=== PATIENT | male | born 1930 | race Caucasian/White ===

== ENCOUNTER 2017-06-06 14:29 | Inpatient (IN) | payer MEDICARE, OTHER ==
[~2017-06-06] VITALS: Ht 165.1 cm; Wt 49.8 kg
[~2017-06-06 14:29] MED LIST: ASPI-664 PO; DOCU-144 PO; METO-448 PO; OMEP20CA9 PO; TAMS-14 PO
[2017-06-06] MEDS ORDERED: SOD CHLORIDE 0.9% 500 ML IV STA (15:30)
[2017-06-06] MEDS ORDERED: MAGNESIUM HYDROXIDE 30ML CUP GTB PRN (16:30)
[2017-06-06] MEDS ORDERED: ONDANSETRON 4 MG INJ IV PRN ×2 (16:30)
[2017-06-06] MEDS ORDERED: DOCUSATE SODIUM 100 MG CAP PO PRN (16:30)
[2017-06-06] MEDS ORDERED: NACL 0.9% 3 ML SYG IV SCH (16:30)
[2017-06-06] MEDS ORDERED: ACETAMINOPHEN 325 MG TAB GTB PRN (16:30)
[2017-06-06] MEDS ORDERED: ACETAMINOPHEN 325 MG TAB PO PRN (16:30)
--- NOTE | 2017-06-06 16:31 | HP ---
Date/Time of Note Date/Time of Note DATE: 06/06/17 TIME: 16:31 Assessment/Plan VTE Prophylaxis VTE Prophylaxis Intervention: other Assessment/Plan Assessment/Plan 1. J tube malfunction - Patient sent from [facility] for replacement of Jtube - Dr. Danielson called by ED and plans for replacement in the am 2. Chronic respiratory failure with trach on vent - continue current settings - patient likely to be d/c after placement of J tube but if hospitalization prolonged with consult Pulm for vent management 3. ESBL UTI - Patient currently undergoing tx at SNF. Per records Vancomycin 500mg IV until 06/10 - patient has nl WBC and afebrile 4. Anemia - Will check FOBT - Iron studies ordered - ED ordered 2 units PRBC - Will hold Lovenox and aspirin for now - Start PPI IV BID for ?GI bleed. No yasmine blood appreciated 5. Hyponatremia - Will check baseline via [facility] records - order urine studies 6. Hemiplegia - Per Records, patient gets out of bed to [facility] [place] - contraction of lower extremities 7. HTN - continue current medications - stable 8. Dementia 9. CVA - hold aspirin for now 10. Diet - Resume tube feeds once Jtube replaced and GI bleed ruled out 11. DVT ppx - SCD 12. GI ppx - PPI BID 13. Code status - Full. will need to call facility regarding code status since not on paperwork 14. Disposition - Admit to telemetry HPI/ROS Admit Date/Time Admit Date/Time 06/06/17 Hx of Present Illness 86 yo M with PMH chronic respiratory failure who is trach dependent on ventilator, CVA, HTN, Dementia, Hemiplegia, Alzheimers, GERD, anemia, and COPD was sent from [facility] and rehab for malfunctioning J tube. Dr. Danielson made aware by ED physician. G tube placed in ED. Patient is currently receiving treatment for ESBL UTI and on Vancomycin 500mg IV until 06/10. Patient in no acute distress. History obtained from records sent with patient from SNF as well as ED physician. ROS All 12 systems reviewed but unable to obtain full ROS due to patient being nonverbal PMH/Family/Social Past Medical History Medical History: coronary artery disease, GERD, hypertension, renal disease, urinary tract infection, other (CVA. chronic respiratory failure, Dementia, Hemiplegia, anemia) Past Surgical History J tube placement, Trach placement Family History Significant Family History: no pertinent family hx Social History Alcohol Use: none Smoking Status: Unknown if ever smoked Drug Use: none Exam/Review of Systems Vital Signs Vitals Vital Signs Date Time Temp Pulse Resp B/P Pulse Ox O2 Delivery O2 Flow Rate FiO2 06/06/17 15:48 105 25 97 30 06/06/17 15:05 99.2 130/69 Exam Constitutional: alert, oriented, well developed, No distress Psych: no complaints Head: atraumatic, normocephalic Eyes: EOMI, PERRL ENMT: other (trach in place, no dentition) Neck: non-tender, supple Respiratory: clear to auscultation, crackles/rales, No wheezing Cardiovascular: nl pulses, regular rate and rhythm, No murmurs/extra sounds, No systolic murmur Gastrointestinal: non-tender, other (Jtube site clean and dry with no discharge , erythema, or drainage), soft, No distended, No rebound or guarding Genitourinary - Male: No discharge Musculoskeletal: other (contracted lower extremities) Extremities: No cyanosis, No edema Neurological: 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
[2017-06-06 16:39] LABS: ABNORMAL IP MESSAGE 1; BASOPHILS % 0.1 % (0.0-2.0); EOSINOPHILS # 0.1 10^3/ul (0.0-0.5); EOSINOPHILS % 0.6 % (0.0-7.0); HEMATOCRIT 22.6 % (42.0-52.0); HEMOGLOBIN 7.4 g/dl (14.0-18.0); LYMPHOCYTES # 0.4 10^3/ul (0.8-2.9); LYMPHOCYTES % 5.5 % (15.0-51.0); MEAN CORPUSCULAR HEMOGLOBIN 27.4 pg (29.0-33.0); MEAN CORPUSCULAR HGB CONC 32.7 g/dl (32.0-37.0); MEAN CORPUSCULAR VOLUME 83.7 fl (82.0-101.0); MEAN PLATELET VOLUME 9.1 fl (7.4-10.4); MONOCYTE # 0.3 10^3/ul (0.3-0.9); MONOCYTES % 4.4 % (0.0-11.0); NEUTROPHIL # 6.9 10^3/ul (1.6-7.5); NEUTROPHILS % 88.2 % (39.0-77.0); PLATELET COUNT 318 10^3/UL (140-415); POSITIVE DIFF @See below; RED CELL DISTRIBUTION WIDTH 18.4 % (11.5-14.5); WHITE BLOOD COUNT 7.8 10^3/ul (4.8-10.8)
[2017-06-06 16:48] VITALS: TEMP 98.4
[2017-06-06 16:58] LABS: ALBUMIN 2.3 g/dl (3.3-4.9); ALBUMIN/GLOBULIN RATIO 0.56; CALCIUM 8.3 mg/dl (8.4-10.2); CREATININE 1.05 mg/dl (0.61-1.24); POTASSIUM 4.1 mmol/L (3.5-5.1); TOTAL PROTEIN 6.4 g/dl (6.1-8.1)
[2017-06-06] MEDS: SOD CHLORIDE 0.9% 1,000 ML IV SCH (17:53)
[2017-06-06] MEDS ORDERED: FAMOTIDINE 20 MG INJ IV ONE (19:00)
[2017-06-06] MEDS ORDERED: VANCOMYCIN IV PER PHARMACY XX SCH (19:00)
[2017-06-06] MEDS ORDERED: VANCOMYCIN 500MG/NS (PMX) 100 ML IVPB SCH (19:00)
[2017-06-06] MEDS ORDERED: SOD CHLORIDE 0.9% 250 ML IV ONE (19:01)
--- NOTE | 2017-06-06 19:23 | ERD ---
ER Documentation Chief Complaint Chief Complaint PT HERE FOR J-TUBE REPLACEMENT HPI This 86 year male presents for a JG tube replacement secondary to a hole in the G-tube causing him to leak all over the patient. Brought in by paramedics and they stated there are no other complaints. The patient is his normal state of health including his respiratory on his normal vent settings, normal mental status which is noncommunicative at baseline. ROS Unobtainable Medications Home Meds Reported Medications Omeprazole* (Prilosec*) 20 Mg Capsule.dr, 20 MG PO DAILY, CAP 01/25/14 Docusate Sodium* (Colace*) 100 Mg Capsule, 100 MG PO BID, CAP 01/25/14 Aspirin* (Aspirin* (EC)) 81 Mg Tablet.dr, 81 MG PO DAILY, TAB 01/25/14 Metoprolol Tartrate* (Lopressor*) 25 Mg Tab, 25 MG PO BID for ELEVATED BLOOD PRESSURE, TAB 01/25/14 Tamsulosin Hcl* (Flomax*) 0.4 Mg Cap.er.24h, 0.4 MG PO HS, CAP 01/25/14 Allergies Allergies: Coded Allergies: No Known Allergies (Verified Allergy, Unknown, 01/25/14) PMhx/Soc History of Surgery: No Anesthesia Reaction: No Hx Neurological Disorder: No Hx Respiratory Disorders: No Hx Cardiac Disorders: No Hx Psychiatric Problems: No Hx Miscellaneous Medical Probl: Yes (BPH, spinal stenosis, HTN, ataxia, vocal cord cancer) Hx Alcohol Use: No Hx Substance Use: No Hx Tobacco Use: No Smoking Status: Unknown if ever smoked Physical Exam Vitals Vital Signs Date Time Temp Pulse Resp B/P Pulse Ox O2 Delivery O2 Flow Rate FiO2 06/06/17 15:48 105 25 97 30 06/06/17 15:05 99.2 103 16 130/69 100 Physical Exam Const: [] No obvious distress Head: Atraumatic Eyes: Normal Conjunctiva ENT: Normal External Ears, Nose and Mouth. Neck: Full range of motion..~ No meningismus. Resp: Admitted rhonchorous breath sounds from ventilator. Good air movement Cardio: Regular rate and rhythm, no murmurs Abd: Soft, no apparent tenderness, non distended. Normal bowel sounds. [address] [place] [address] tube in [address] with crack or leakage onto patient. Skin: No petechiae or rashes pale skin Ext: No cyanosis, or edema Neur: Awake and alert, tries to hold on his G-tube to prevent access, unable to perform any other neurological assessment is Result Diagram: 06/06/17 1530 06/06/17 1530 Results 24 hrs Laboratory Tests Test 06/06/17 15:30 White Blood Count 7.810^3/ul Red Blood Count 2.7010^6/ul Hemoglobin 7.4g/dl Hematocrit 22.6% Mean Corpuscular Volume 83.7fl Mean Corpuscular Hemoglobin 27.4pg Mean Corpuscular Hemoglobin Concent 32.7g/dl Red Cell Distribution Width 18.4% Platelet Count 84348^3/UL Mean Platelet Volume 9.1fl Neutrophils % 88.2% Lymphocytes % 5.5% Monocytes % 4.4% Eosinophils % 0.6% Basophils % 0.1% Nucleated Red Blood Cells % 0.0/100WBC Neutrophils # 6.910^3/ul Lymphocytes # 0.410^3/ul Monocytes # 0.310^3/ul Eosinophils # 0.110^3/ul Basophils # 0.010^3/ul Nucleated Red Blood Cells # 0.010^3/ul Sodium Level 131mmol/L Potassium Level 4.1mmol/L Chloride Level 96mmol/L Carbon Dioxide Level 31mmol/L Anion Gap 8 Blood Urea Nitrogen 50mg/dl Creatinine 1.05mg/dl Glucose Level 99mg/dl Calcium Level 8.3mg/dl Total Bilirubin 0.0mg/dl Direct Bilirubin 0.00mg/dl Indirect Bilirubin 0.0mg/dl Aspartate Amino Transf (AST/SGOT) 32IU/L Alanine Aminotransferase (ALT/SGPT) 26IU/L Alkaline Phosphatase 107IU/L Total Protein 6.4g/dl Albumin 2.3g/dl Globulin 4.10g/dl Albumin/Globulin Ratio 0.56 Lipase 35U/L Current Medications Medications (Trade) Dose Ordered Sig/Brian Route PRN Reason Start Time Stop Time Status Last Admin Dose Admin Sodium Chloride (NS) 500 ml @ 500 mls/hr Q1H STAT IV 06/06/17 15:30 06/06/17 16:29 DC 06/06/17 16:37 Procedures/MDM Patient sent here for feeding tube placement secondary to leaking G-tube with hole. Leaking G-tube was removed and normal small 18 Kazakh G-tube was put in place to maintain the opening. Spoke with Dr. Danielson, who is the patient's GI consult on his last visit for intestinal obstruction. We will place the tube in the morning. Patient also has an elevated BUN and low hemoglobin compared to a hemoglobin of 12 last time is dropped significantly both labs are consistent with GI bleeding. Patient was given Pepcid IV and is being transferred 2 units. Patient is being admitted to panel Dr. Merritt saw the patient in the room. Departure Diagnosis: Primary Impression: Acute GI bleeding Additional Impressions: Severe anemia Feeding tube dysfunction Condition: Serious CATRACHITA WASHBURN Jun 06, 2017 19:23
[2017-06-06 19:50] VITALS: RESP 22
[2017-06-06 20:00] VITALS: BP 117/58; RESP 21
[2017-06-06] MEDS ORDERED: VANCOMYCIN 1 GM in NS 250 ML IVPB SCH ×2 (20:00→21:30)
[2017-06-06 20:22] VITALS: Ht 165.1 cm; Wt 49.8 kg
[2017-06-06 20:36] VITALS: PULSE 98
[2017-06-06 21:45] VITALS: RESP 27
[2017-06-06] MEDS: METOPROLOL 25 MG TAB GTB SCH (22:36)
[2017-06-06] MEDS: TAMSULOSIN (SR) 0.4 MG CAP PO SCH (22:38)
[2017-06-06] MEDS ORDERED: PENDING SANTYL ORDER FOR WOUND CARE XX PRN (23:00)
[2017-06-06 23:20] VITALS: RESP 20
[2017-06-07] VITALS (31 sets, daily range): BP systolic 113–153; BP diastolic 57–73; PULSE 73–114; RESP 14–26
[2017-06-07] MEDS ORDERED: ACETAMINOPHEN 650 MG SUPP PR ONE (05:30)
[2017-06-07] MEDS: PANTOPRAZOLE 40 MG INJ IV SCH ×2 (05:32→17:30)
[2017-06-07] MEDS: SOD CHLORIDE 0.9% 1,000 ML IV SCH ×2 (05:32→17:30)
[2017-06-07] MEDS ORDERED: PANTOPRAZOLE (EC) 40 MG TAB PO SCH (06:00)
[2017-06-07] MEDS: COLLAGENASE 30 GM TUBE TOP SCH (08:31)
[2017-06-07] MEDS: METOPROLOL 25 MG TAB GTB SCH ×2 (08:31→21:42)
[2017-06-07] MEDS ORDERED: ASPIRIN (EC) 81 MG TAB PO SCH (09:00)
[2017-06-07] MEDS ORDERED: ENOXAPARIN 40 MG/0.4 ML SYG SC SCH (09:00)
[2017-06-07 10:40] LABS: ABNORMAL IP MESSAGE 1; BASOPHILS % 0.3 % (0.0-2.0); EOSINOPHILS # 0.1 10^3/ul (0.0-0.5); EOSINOPHILS % 0.8 % (0.0-7.0); HEMATOCRIT 27.9 % (42.0-52.0); HEMOGLOBIN 9.1 g/dl (14.0-18.0); LYMPHOCYTES # 0.6 10^3/ul (0.8-2.9); LYMPHOCYTES % 5.4 % (15.0-51.0); MEAN CORPUSCULAR HEMOGLOBIN 27.5 pg (29.0-33.0); MEAN CORPUSCULAR HGB CONC 32.6 g/dl (32.0-37.0); MEAN CORPUSCULAR VOLUME 84.3 fl (82.0-101.0); MEAN PLATELET VOLUME 9.2 fl (7.4-10.4); MONOCYTE # 0.4 10^3/ul (0.3-0.9); MONOCYTES % 3.9 % (0.0-11.0); NEUTROPHIL # 9.5 10^3/ul (1.6-7.5); NEUTROPHILS % 87.7 % (39.0-77.0); PLATELET COUNT 323 10^3/UL (140-415); POSITIVE DIFF @See below; RED BLOOD COUNT 3.31 10^6/ul (4.70-6.10); RED CELL DISTRIBUTION WIDTH 17.2 % (11.5-14.5); WHITE BLOOD COUNT 10.8 10^3/ul (4.8-10.8)
[2017-06-07 10:52] LABS: IRON 30 ug/dl (35-150)
[2017-06-07 10:56] LABS: ALBUMIN 2.2 g/dl (3.3-4.9); CALCIUM 8.4 mg/dl (8.4-10.2); CREATININE 1.14 mg/dl (0.61-1.24); PHOSPHORUS 4.1 mg/dl (2.5-4.9); POTASSIUM 3.6 mmol/L (3.5-5.1)
[2017-06-07 11:01] LABS: TOTAL IRON BINDING CAPACITY 160 ug/dl (241-421)
[2017-06-07 11:11] LABS: INR 1.1; PROTIME 14.2 Sec (12.2-14.2); PT RATIO 1.1
[2017-06-07 11:12] LABS: PARTIAL THROMBOPLASTIN TIME 42.4 Sec (25.0-35.0)
[2017-06-07] MEDS: SODIUM HYPOCHLORITE 0.125% 473 ML BTL IRR SCH ×2 (14:00→21:42)
--- NOTE | 2017-06-07 16:50 | CONS ---
DATE OF ADMISSION: 06/06/2017 DATE OF CONSULTATION: 06/07/2017 Thank you, Dr. Merritt, for this consultation. HISTORY OF PRESENT ILLNESS: This is an 86-year-old gentleman with vent dependent respiratory failur e, CVA, hypertension, hyperlipidemia, COPD, transferred for evaluation of malfunctioning G-tube. Th e patient had no change from his baseline neurological status. On admission, found to have ESBL uri nary tract infection. PAST MEDICAL HISTORY: 1. Vent dependent respiratory failure. 2. Cerebrovascular accident. 3. Chronic anemia. 4. Recent gastrostomy tube malfunction. 5. History of dementia. 6. Dysphagia with G-tube. MEDICATIONS: Per chart. ALLERGIES: NONE. SOCIAL HISTORY: Nonsmoker, no alcohol, no history of drug use. FAMILY HISTORY: Noncontributory. SYSTEMS REVIEW: A 12-point review of systems was negative other than that mentioned above. PHYSICAL EXAMINATION: GENERAL: A chronically ill-appearing gentleman, appears comfortable at rest. VITAL SIGNS: Temperature 98, pulse 84, blood pressure 145/66, O2 saturation 96% on 3 liters. NECK: Supple. No JVD or lymphadenopathy. CARDIAC: S1, S2, no added sounds or murmurs. CHEST: Diminished air entry bilaterally. ABDOMEN: Soft, nontender. No guarding or rebound. EXTREMITIES: No cyanosis, clubbing, edema. NEUROLOGIC: Generalized weakness. LABORATORY DATA: White count 10.8, hemoglobin 9.1, platelets of 323. BUN 43, creatinine 1.14. DIAGNOSTIC DATA: Chest x-ray was reviewed, showed no infiltrates or effusions. IMPRESSION AND PLAN: 1. G-tube malfunction. 2. Vent dependent respiratory failure. 3. Chronic anemia, questionable gastrointestinal bleed. 4. History of encephalopathy. 5. History of cerebrovascular accident. PLAN: 1. Continue vent support. 2. Monitor H and H post-transfusion. 3. Continue tube feeding per GI. 4. Bronchiolitis. 5. DVT and GI prophylaxis. Dictated By: MUNIRA CABRERA/FOX Conf#: [id number] DID#: [id number] CC: Dr. Miriam Merritt;*EndCC*
--- NOTE | 2017-06-07 19:12 | PN ---
Date/Time of Note Date/Time of Note DATE: 06/07/17 TIME: 19:06 Assessment/Plan VTE Prophylaxis VTE Prophylaxis Intervention: SCD's Lines/Catheters IV Catheter Type (from Nrs): Saline Lock Urinary Cath still in place: Yes Reason Cath still needed: terminal illness/intractable pain Assessment/Plan Assessment/Plan 1. J tube malfunction - Patient sent from [facility] for replacement of Jtube - Dr. Danielson called by ED and plans for replacement 2. Chronic respiratory failure with trach on vent - continue current settings - Pulmonology consulted and appreciated recommendations. Continue on vent support with bronchodilators 3. ESBL UTI - Patient currently undergoing tx at [facility]. Vancomycin until 06/10 - patient has nl WBC and afebrile 4. Anemia - Will check FOBT - Iron studies show low iron. start replacement - Will hold Lovenox and aspirin for now - Start PPI IV BID for ?GI bleed. No yasmine blood appreciated 5. Hyponatremia- improved 6. Hemiplegia - Per Records, patient gets out of bed to [facility] - contraction of lower extremities 7. HTN - continue current medications - stable 8. Dementia 9. CVA - hold aspirin for now 10. Disposition - J tube needs replacing - rule out GI bleed - return to [facility] when stable Subjective 24 Hr Interval Summary Free Text/Dictation Patient in no acute distress on vent. No acute overnight events. Received 2 units PRBC yesterday. no active bleeding appreciated Exam/Review of Systems Vital Signs Vitals Vital Signs Date Time Temp Pulse Resp B/P Pulse Ox O2 Delivery O2 Flow Rate FiO2 06/07/17 17:05 83 18 97 30 06/07/17 16:01 98.3 145/66 06/06/17 16:48 Mechanical Ventilator Intake and Output 06/06/17 06/06/17 06/07/17 14:59 22:59 06:59 Intake Total 250 ml 50 ml Balance 250 ml 50 ml Exam Constitutional: alert, oriented, well developed, No distress ENMT: trach in place, no dentition Neck: non-tender, supple Respiratory: clear to auscultation, diminished breath sounds bilaterally, No wheezing Cardiovascular: nl pulses, regular rate and rhythm, No murmurs/extra sounds, No systolic murmur Gastrointestinal: non-tender, G tube site clean and dry with no discharge, erythema, or drainage, soft, No distended, No rebound or guarding Musculoskeletal: ontracted lower extremities Extremities: No cyanosis, No edema Neurological: 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 II-XII intact, nl mental status, nl speech Results Result Diagram: 06/07/1790406/07/17904 Results 24 hrs Laboratory Tests Test 06/07/17 09:05 06/07/17 16:00 White Blood Count 10.8 # Red Blood Count 3.31 #L Hemoglobin 9.1 #L Hematocrit 27.9 #L Mean Corpuscular Volume 84.3 Mean Corpuscular Hemoglobin 27.5 L Mean Corpuscular Hemoglobin Concent 32.6 Red Cell Distribution Width 17.2 H Platelet Count 323 Mean Platelet Volume 9.2 Neutrophils % 87.7 H Lymphocytes % 5.4 L Monocytes % 3.9 Eosinophils % 0.8 Basophils % 0.3 Nucleated Red Blood Cells % 0.0 Neutrophils # 9.5 H Lymphocytes # 0.6 L Monocytes # 0.4 Eosinophils # 0.1 Basophils # 0.0 Nucleated Red Blood Cells # 0.0 Prothrombin Time 14.2 Prothrombin Time Ratio 1.1 INR International Normalized Ratio 1.10 Activated Partial Thromboplast Time 42.4 H Sodium Level 137 Potassium Level 3.6 Chloride Level 102 Carbon Dioxide Level 28 Anion Gap 11 Blood Urea Nitrogen 43 H Creatinine 1.14 Glucose Level 80 Calcium Level 8.4 Phosphorus Level 4.1 Magnesium Level 2.0 Iron Level 30 L Total Iron Binding Capacity 160 L Percent Iron Saturation 19 L Albumin 2.2 L Prealbumin 7.6 L Stool Occult Blood NEGATIVE Medications Medications Current Medications Docusate Sodium (Colace) 100 mg BID PRN PO constipation; Start 06/06/17 at 16: 30 Metoprolol Tartrate (Lopressor) 25 mg BID GTB ; Start 06/06/17 at 21:00 Tamsulosin HCl 0.4 mg 0.4 mg HS PO ; Start 06/06/17 at 21:00 Sodium Chloride (NS) 1,000 ml @ 75 mls/hr [id number] IV Last administered on t 17:53; Admin Dose 75 MLS/HR; Start 06/06/17 at 16:27 Ondansetron HCl (Zofran Inj) 4 mg Q6H PRN IV NAUSEA AND/OR VOMITING; Start at 16:30 Acetaminophen (Tylenol Tab) 650 mg Q6H PRN GTB PAIN LEVEL 1-3 OR FEVER; Start 06/06/17 at 16:30 Magnesium Hydroxide (Milk Of Mag) 30 ml DAILY PRN GTB CONSTIPATION; Start at 16:30 Enoxaparin Sodium (Lovenox) 40 mg DAILY SC ; Start 06/07/17 at 09:00; Status Future Hold Pantoprazole (Protonix Iv) 40 mg BID@06,18 IV Last administered on 06/07/17 17:30; Admin Dose 40 MG; Start 06/07/17 at 06:00 Miscellaneous Information This patient felipe... PRN PRN XX WOUND CARE; Start at 23:00 Vancomycin HCl (Vancocin) 100 ml @ 100 mls/hr Q24H IVPB ; Start 06/07/17 at 23 :45 Collagenase (Santyl) 1 applic DAILY TOP Last administered on 06/07/17 08:31; Admin Dose 1 APPLIC; Start 06/07/17 at 09:00 Sodium Hypochlorite (Dakin'S (1/4 Strength)) 1 applic BID IRR Last administered on 06/07/17 14:00; Admin Dose 1 APPLIC; Start 06/07/17 at 14:00 Miscellaneous Information (*Rx Drug Level Order Reminder*) 1 ONCE ONCE XX ; Start 06/07/17 at 22:45; Stop 06/07/17 at 22:46 GAVI GARCIA MD Jun 07, 2017 19:12
--- NOTE | 2017-06-07 19:14 | CONS ---
DATE OF ADMISSION: 06/06/2017 DATE OF CONSULTATION: 06/07/2017 REQUESTING PROVIDER: Leroy Roach MD. HISTORY OF PRESENT ILLNESS: The patient is an 86-year-old male with a history of vent-dependent res piratory failure, CVA, aspiration pneumonia in the past, COPD, was brought to the emergency room bec ause there was a marichuy in the stalk of the GJ tube so there was a leakage from that. In the ER, the GJ tube, which was malfunctioning, was removed and the ER physician replaced with a gastrostomy tube . They could not pass the GJ tube, so GI consult was called in for placement of a gastrojejunostomy tube. The patient also was found to have ESBL in the urine. PAST MEDICAL HISTORY: Dementia, GJ tube for aspiration pneumonia placed at [facility] by kunal stanford CVA, vent dependent respiratory failure. ALLERGIES: NONE. SOCIAL HISTORY: Nonsmoker, no alcohol, no IV drug abuse. FAMILY HISTORY: Nothing significant. REVIEW OF SYSTEMS: Otherwise negative. PHYSICAL EXAMINATION: GENERAL: Thin built, nourished. HEENT: Unremarkable. NECK: Supple, no thyromegaly, no lymphadenopathy. CARDIOVASCULAR: No murmur, gallop or click. LUNGS: Clear. ABDOMEN: Benign. G-tube in place. EXTREMITIES: No edema. CENTRAL NERVOUS SYSTEM: The patient is confused. IMPRESSION: 1. Malfunctioning GJ tube. 2. Vent dependent respiratory failure. 3. Chronic anemia. 4. History of aspiration pneumonia. 5. Cerebrovascular accident. 6. Encephalopathy. PLAN: Continue present care. Continue IV hydration and once we get the consent and GI lab is able to accommodate, I will proceed with the placement of gastrojejunostomy tube. The patient's hematocrit when he came was low, now it is 27. His BUN also was high. Iron saturatio n was 19, low. Plan is to monitor H and H, proceed with a GJ tube. Continue IV hydration in the nd antime. Dictated By: ELIZABETH AVILA MD PJ/NTS Conf#: [id number] DID#: [id number] CC: LEROY ROACH MD;*EndCC*
--- NOTE | 2017-06-07 19:27 | OPPN ---
Date/Time of Note Date/Time of Note DATE: 06/07/17 TIME: 19:25 Proc Note GI Procedure Date 06/07/17 Indication: treatment (Gastro-jejunostomy tube) Pre-procedure Diagnosis Dysphagia Aspiration pneumonia Post-procedure Diagnosis Removal of the G-tube Placement of gastrojejunostomy tube with no loop inside the stomach Procedure Performed: Other (Jejunostomy tube) Surgeon see signature line Road Train Driver none Anesthesia Type: MAC Tourniquet Time none EBL none Transfusion required none Biopsy 1: None Grafts/Implants none Tubes/Drains none Complication(s) none Disposition: PACU Procedure Description Dictated ELIZABETH AVILA MD Jun 07, 2017 19:27
--- NOTE | 2017-06-07 19:39 | GILP ---
DATE OF PROCEDURE: 06/07/2017 PROCEDURE: Removal of G-tube and placement of gastrojejunostomy tube. INDICATION: Elderly male undergoing this procedure for malfunctioning of the GJ tube. The risk of the procedure, related and unrelated complications, anesthetic risks, alternatives discussed with garcia e son and informed consent was obtained. Procedure was done bedside. DESCRIPTION OF PROCEDURE: Patient was sedated by Dr. Gabriel. After obtaining sedation, scope was p assed with much ease into esophagus and advanced further down into stomach. The G-tube with its bal loon identified. Balloon was deflated. G-tube was removed and through the same gastrocutaneous fis justin, GJ tube of 20 Barbadian passed with much ease into the stomach. The loop of the GJ tube was gras ped with endoclip and pulled along with the GJ tube all the way beyond the third part of the duodenu m. It was in the proximal jejunum. When the tip of the jejunostomy tube was in the proximal jejunu m, the loop was encouraged to the mucosa by endoclip. The scope was then withdrawn back into the [facility]. There was a small loop of GJ tube. That loop was reduced with the help of rectal forceps gr asping the stalk of the GJ tube and pushing it down, making sure there was absolutely no loop left b ehind. The patient tolerated the procedure very well. Scope was removed with excellent patient yash erance. IMPRESSION: 1. Removal of the old G-tube. 2. Placement of GJ tube. PLAN: Resume feeding through the jejunostomy port and medications through the gastrostomy port. Th is information was conveyed to the nurse, Sybil. Dictated By: ELIZABETH CLARK/FOX Conf#: [id number] DID#: [id number]
[2017-06-07] MEDS ORDERED: VANCOMYCIN 750 MG in DEXTROSE 5% 150 ML IVPB SCH (21:30)
[2017-06-07] MEDS: TAMSULOSIN (SR) 0.4 MG CAP PO SCH (21:42)
[2017-06-07] MEDS ORDERED: VANCOMYCIN 500MG/NS (PMX) 100 ML IVPB SCH (23:45)
[2017-06-08] VITALS (22 sets, daily range): BP systolic 135–189; BP diastolic 65–88; PULSE 80–122; RESP 16–37
[2017-06-08] MEDS: PANTOPRAZOLE 40 MG INJ IV SCH ×2 (05:45→17:04)
[2017-06-08] MEDS: SOD CHLORIDE 0.9% 1,000 ML IV SCH ×2 (05:46→08:27)
[2017-06-08] MEDS: METOPROLOL 25 MG TAB GTB SCH ×2 (08:18→22:39)
[2017-06-08] MEDS: SODIUM HYPOCHLORITE 0.125% 473 ML BTL IRR SCH ×2 (08:19→22:40)
[2017-06-08] MEDS: COLLAGENASE 30 GM TUBE TOP SCH (08:20)
[2017-06-08 08:37] LABS: ABNORMAL IP MESSAGE 1; BASOPHILS % 0.2 % (0.0-2.0); EOSINOPHILS # 0.1 10^3/ul (0.0-0.5); EOSINOPHILS % 0.8 % (0.0-7.0); HEMATOCRIT 27.3 % (42.0-52.0); LYMPHOCYTES # 0.5 10^3/ul (0.8-2.9); LYMPHOCYTES % 3.9 % (15.0-51.0); MEAN CORPUSCULAR HEMOGLOBIN 27.5 pg (29.0-33.0); MEAN CORPUSCULAR VOLUME 83.5 fl (82.0-101.0); MEAN PLATELET VOLUME 8.8 fl (7.4-10.4); MONOCYTE # 0.5 10^3/ul (0.3-0.9); MONOCYTES % 4.3 % (0.0-11.0); NEUTROPHIL # 10.7 10^3/ul (1.6-7.5); NEUTROPHILS % 87.9 % (39.0-77.0); PLATELET COUNT 303 10^3/UL (140-415); POSITIVE DIFF @See below; RED BLOOD COUNT 3.27 10^6/ul (4.70-6.10); RED CELL DISTRIBUTION WIDTH 17.2 % (11.5-14.5); WHITE BLOOD COUNT 12.2 10^3/ul (4.8-10.8)
[2017-06-08 09:16] LABS: ALBUMIN 2.1 g/dl (3.3-4.9); CALCIUM 8.1 mg/dl (8.4-10.2); CREATININE 1.13 mg/dl (0.61-1.24); MAGNESIUM 1.8 mg/dl (1.7-2.5); PHOSPHORUS 4.4 mg/dl (2.5-4.9); POTASSIUM 3.6 mmol/L (3.5-5.1)
[2017-06-08] MEDS ORDERED: DEXTROSE 5%-0.45% NACL 1,000 ML IV SCH (11:00)
[2017-06-08] MEDS: SOD CHLORIDE 0.45% 1,000 ML IV SCH (11:29)
--- NOTE | 2017-06-08 13:51 | CONS ---
Date/Time of Note Date/Time of Note DATE: 06/08/17 TIME: 13:50 Assessment/Plan Assessment/Plan Additional Assessment/Plan IMPRESSION: 1. Malfunctioning GJ tube. 2. Vent dependent respiratory failure. 3. Chronic anemia. 4. History of aspiration pneumonia. 5. Cerebrovascular accident. 6. Encephalopathy. 7. S/P GJ tube Plan tolerating feeding advance feeding as per dietitian instruction Consultation Date/Type/Reason Admit Date/Time Jun 08, 2017 at 12:13 Initial Consult Date 24 HR Interval Summary Constitutional: no complaints Exam/Review of Systems Vital Signs Vitals Vital Signs Date Time Temp Pulse Resp B/P Pulse Ox O2 Delivery O2 Flow Rate FiO2 06/08/17 12:54 84 06/08/17 12:06 98.6 18 149/67 99 06/08/17 10:55 30 06/07/17 19:55 Mechanical Ventilator Intake and Output 06/07/17 06/07/17 06/08/17 15:00 23:00 07:00 Intake Total 575 ml 0 ml 580 ml Output Total 800 ml 600 ml 600 ml Balance -225 ml -600 ml -20 ml Exam Constitutional: alert, oriented, well developed Psych: nl mood/affect, no complaints Head: atraumatic, normocephalic Eyes: EOMI, PERRL, nl conjunctiva, nl lids, nl sclera ENMT: nl external ears & nose, nl lips & teeth, nl nasal mucosa & septum Neck: non-tender, supple Respiratory: clear to auscultation, normal air movement Cardiovascular: nl pulses, regular rate and rhythm Gastrointestinal: nl liver, spleen, non-tender, soft Musculoskeletal: nl extremities to inspection, nl gait and stance Extremities: normal pulses Neurological: 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 II-XII intact, nl mental status, nl speech, nl strength Skin: nl turgor, No rash or lesions Lymph: nl lymph nodes Results Result Diagram: 06/08/17 0806/08/17 08 Results 24 hrs Laboratory Tests Test 06/07/17 16:00 06/07/17 22:50 06/08/17 08:01 Stool Occult Blood NEGATIVE Vancomycin Level Trough 19.7 White Blood Count 12.2 H Red Blood Count 3.27 L Hemoglobin 9.0 L Hematocrit 27.3 L Mean Corpuscular Volume 83.5 Mean Corpuscular Hemoglobin 27.5 L Mean Corpuscular Hemoglobin Concent 33.0 Red Cell Distribution Width 17.2 H Platelet Count 303 Mean Platelet Volume 8.8 Neutrophils % 87.9 H Lymphocytes % 3.9 L Monocytes % 4.3 Eosinophils % 0.8 Basophils % 0.2 Nucleated Red Blood Cells % 0.0 Neutrophils # 10.7 H Lymphocytes # 0.5 L Monocytes # 0.5 Eosinophils # 0.1 Basophils # 0.0 Nucleated Red Blood Cells # 0.0 Sodium Level 142 Potassium Level 3.6 Chloride Level 107 Carbon Dioxide Level 23 Anion Gap 16 Blood Urea Nitrogen 40 H Creatinine 1.13 Glucose Level 102 Calcium Level 8.1 L Phosphorus Level 4.4 Magnesium Level 1.8 Albumin 2.1 L Medications Medications Current Medications Docusate Sodium (Colace) 100 mg BID PRN PO constipation; Start 06/06/17 at 16: 30 Metoprolol Tartrate (Lopressor) 25 mg BID GTB Last administered on 06/08/17 08:18; Admin Dose 25 MG; Start 06/06/17 at 21:00 Tamsulosin HCl (Flomax) 0.4 mg HS PO Last administered on 06/07/17 21:42; Admin Dose 0.4 MG; Start 06/06/17 at 21:00 Ondansetron HCl (Zofran Inj) 4 mg Q6H PRN IV NAUSEA AND/OR VOMITING; Start at 16:30 Acetaminophen (Tylenol Tab) 650 mg Q6H PRN GTB PAIN LEVEL 1-3 OR FEVER; Start 06/06/17 at 16:30 Magnesium Hydroxide (Milk Of Mag) 30 ml DAILY PRN GTB CONSTIPATION; Start at 16:30 Enoxaparin Sodium (Lovenox) 40 mg DAILY SC ; Start 06/07/17 at 09:00; Status Future Hold Pantoprazole (Protonix Iv) 40 mg BID@06,18 IV Last administered on 06/08/17 05:45; Admin Dose 40 MG; Start 06/07/17 at 06:00 Miscellaneous Information This patient felipe... PRN PRN XX WOUND CARE; Start at 23:00 Vancomycin HCl (Vancocin) 100 ml @ 100 mls/hr Q24H IVPB Last administered on 06/07/17 23:56; Admin Dose 100 MLS/HR; Start 06/07/17 at 23:45 Collagenase (Santyl) 1 applic DAILY TOP Last administered on 06/08/17 08:20; Admin Dose 1 APPLIC; Start 06/07/17 at 09:00 Sodium Hypochlorite 1 applic 1 applic BID IRR Last administered on 06/08/17 08:19; Admin Dose 1 APPLIC; Start 06/07/17 at 14:00 Sodium Chloride (1/2 NS) 1,000 ml @ 50 mls/hr Q20H IV Last administered on 11:29; Admin Dose 50 MLS/HR; Start 06/08/17 at 11:00 ELIZABETH AVILA MD Jun 08, 2017 13:51
--- NOTE | 2017-06-08 16:14 | PN ---
Date/Time of Note Date/Time of Note DATE: 06/08/17 TIME: 16:10 Assessment/Plan VTE Prophylaxis VTE Prophylaxis Intervention: SCD's Lines/Catheters IV Catheter Type (from [facility]): Saline Lock Urinary Cath still in place: Yes Reason Cath still needed: urinary retention Assessment/Plan Chief Complaint/Hosp Course Assessment/Plan 1. J tube malfunction - Patient sent from [facility] for replacement of Jtube - Dr. Danielson called by ED and replaced Jtube yesterday -working well -back on tube feeds 2. Chronic respiratory failure with trach on vent - continue current settings - Pulmonology consulted and appreciated recommendations. Continue on vent support with bronchodilators 3. ESBL UTI - Patient currently undergoing tx at [facility]. Vancomycin until 06/10 - patient has nl WBC and afebrile 4. Anemia - Will check FOBT - Iron studies show low iron. start replacement - Will hold Lovenox and aspirin for now - Start PPI IV BID for ?GI bleed. ?mildly bloody martinez, likely patient ripped out or manipulated martinez. if doesn't clear up, will need to start CBI -GI recs appreciated, will monitor, if hgb stable, will suggest outpatient workup 5. Hyponatremia- improved 6. Hemiplegia - Per Records, patient gets [facility] - contraction of lower extremities 7. HTN - continue current medications - stable 8. Dementia 9. CVA - hold aspirin for now 10. Disposition - J tube replaced - return to [facility] when stable Problems: Subjective 24 Hr Interval Summary Free Text/Dictation easily arousable, but does not follow command, contracted Exam/Review of Systems Vital Signs Vitals Vital Signs Date Time Temp Pulse Resp B/P Pulse Ox O2 Delivery O2 Flow Rate FiO2 06/08/17 15:58 98.8 55 18 189/84 93 06/08/17 10:55 30 06/07/17 19:55 Mechanical Ventilator Intake and Output 06/07/17 06/07/17 06/08/17 15:00 23:00 07:00 Intake Total 575 ml 0 ml 580 ml Output Total 800 ml 600 ml 600 ml Balance -225 ml -600 ml -20 ml Exam Constitutional: alert, oriented, well developed, No distress ENMT: trach in place, no dentition Neck: non-tender, supple Respiratory: clear to auscultation, diminished breath sounds bilaterally, No wheezing Cardiovascular: nl pulses, regular rate and rhythm, No murmurs/extra sounds, No systolic murmur Gastrointestinal: non-tender, G tube site clean and dry with no discharge, erythema, or drainage, soft, No distended, No rebound or guarding Musculoskeletal: ontracted lower extremities Extremities: No cyanosis, No edema Neurological: SCRAP HANDLER II-XII intact, nl mental status, nl speec Results Result Diagram: 06/08/17 0806/08/17 08 Results 24 hrs Laboratory Tests Test 06/07/17 22:50 06/08/17 08:01 Vancomycin Level Trough 19.7 White Blood Count 12.2 H Red Blood Count 3.27 L Hemoglobin 9.0 L Hematocrit 27.3 L Mean Corpuscular Volume 83.5 Mean Corpuscular Hemoglobin 27.5 L Mean Corpuscular Hemoglobin Concent 33.0 Red Cell Distribution Width 17.2 H Platelet Count 303 Mean Platelet Volume 8.8 Neutrophils % 87.9 H Lymphocytes % 3.9 L Monocytes % 4.3 Eosinophils % 0.8 Basophils % 0.2 Nucleated Red Blood Cells % 0.0 Neutrophils # 10.7 H Lymphocytes # 0.5 L Monocytes # 0.5 Eosinophils # 0.1 Basophils # 0.0 Nucleated Red Blood Cells # 0.0 Sodium Level 142 Potassium Level 3.6 Chloride Level 107 Carbon Dioxide Level 23 Anion Gap 16 Blood Urea Nitrogen 40 H Creatinine 1.13 Glucose Level 102 Calcium Level 8.1 L Phosphorus Level 4.4 Magnesium Level 1.8 Albumin 2.1 L Medications Medications Current Medications Docusate Sodium (Colace) 100 mg BID PRN PO constipation; Start 06/06/17 at 16: 30 Metoprolol Tartrate (Lopressor) 25 mg BID GTB Last administered on 06/08/17 08:18; Admin Dose 25 MG; Start 06/06/17 at 21:00 Tamsulosin HCl (Flomax) 0.4 mg HS PO Last administered on 06/07/17 21:42; Admin Dose 0.4 MG; Start 06/06/17 at 21:00 Ondansetron HCl (Zofran Inj) 4 mg Q6H PRN IV NAUSEA AND/OR VOMITING; Start at 16:30 Acetaminophen (Tylenol Tab) 650 mg Q6H PRN GTB PAIN LEVEL 1-3 OR FEVER; Start 06/06/17 at 16:30 Magnesium Hydroxide (Milk Of Mag) 30 ml DAILY PRN GTB CONSTIPATION; Start at 16:30 Enoxaparin Sodium (Lovenox) 40 mg DAILY SC ; Start 06/07/17 at 09:00; Status Future Hold Pantoprazole (Protonix Iv) 40 mg BID@06,18 IV Last administered on 06/08/17 05:45; Admin Dose 40 MG; Start 06/07/17 at 06:00 Miscellaneous Information This patient felipe... PRN PRN XX WOUND CARE; Start at 23:00 Vancomycin HCl (Vancocin) 100 ml @ 100 mls/hr Q24H IVPB Last administered on 06/07/17 23:56; Admin Dose 100 MLS/HR; Start 06/07/17 at 23:45 Collagenase (Santyl) 1 applic DAILY TOP Last administered on 06/08/17 08:20; Admin Dose 1 APPLIC; Start 06/07/17 at 09:00 Sodium Hypochlorite 1 applic 1 applic BID IRR Last administered on 06/08/17 08:19; Admin Dose 1 APPLIC; Start 06/07/17 at 14:00 Sodium Chloride (1/2 NS) 1,000 ml @ 50 mls/hr Q20H IV Last administered on 11:29; Admin Dose 50 MLS/HR; Start 06/08/17 at 11:00 JULIANNA WALDEN Jun 08, 2017 16:14
[2017-06-08] MEDS: TAMSULOSIN (SR) 0.4 MG CAP PO SCH (22:39)
[2017-06-09] VITALS (23 sets, daily range): BP systolic 97–163; BP diastolic 56–77; PULSE 72–90; RESP 18–56
[2017-06-09 06:12] LABS: BASOPHILS % 0.1 % (0.0-2.0); EOSINOPHILS % 0.1 % (0.0-7.0); HEMATOCRIT 26.6 % (42.0-52.0); HEMOGLOBIN 8.8 g/dl (14.0-18.0); LYMPHOCYTES # 0.8 10^3/ul (0.8-2.9); LYMPHOCYTES % 4.1 % (15.0-51.0); MEAN CORPUSCULAR HEMOGLOBIN 27.9 pg (29.0-33.0); MEAN CORPUSCULAR HGB CONC 33.1 g/dl (32.0-37.0); MEAN CORPUSCULAR VOLUME 84.4 fl (82.0-101.0); MEAN PLATELET VOLUME 8.7 fl (7.4-10.4); MONOCYTE # 0.5 10^3/ul (0.3-0.9); MONOCYTES % 2.9 % (0.0-11.0); NEUTROPHIL # 16.5 10^3/ul (1.6-7.5); NEUTROPHILS % 90.8 % (39.0-77.0); PLATELET COUNT 246 10^3/UL (140-415); RED BLOOD COUNT 3.15 10^6/ul (4.70-6.10); RED CELL DISTRIBUTION WIDTH 17.1 % (11.5-14.5); WHITE BLOOD COUNT 18.2 10^3/ul (4.8-10.8)
[2017-06-09] MEDS: PANTOPRAZOLE 40 MG INJ IV SCH ×2 (06:16→18:27)
[2017-06-09 06:36] LABS: ALBUMIN 2.1 g/dl (3.3-4.9); CALCIUM 8.1 mg/dl (8.4-10.2); CREATININE 1.26 mg/dl (0.61-1.24); MAGNESIUM 1.7 mg/dl (1.7-2.5); PHOSPHORUS 2.8 mg/dl (2.5-4.9)
[2017-06-09] MEDS: COLLAGENASE 30 GM TUBE TOP SCH (08:51)
[2017-06-09] MEDS: SODIUM HYPOCHLORITE 0.125% 473 ML BTL IRR SCH ×2 (08:51→21:48)
[2017-06-09] MEDS: METOPROLOL 25 MG TAB GTB SCH ×2 (08:58→21:48)
[2017-06-09] MEDS: SOD CHLORIDE 0.45% 1,000 ML IV SCH (09:16)
[2017-06-09] MEDS ORDERED: POTASSIUM CHLORIDE 250 ML IVPB ONE (10:00)
[2017-06-09] MEDS: VANCOMYCIN 500MG/NS (PMX) 100 ML IVPB SCH (12:22)
[2017-06-09] MEDS: PIPER-TAZO 2.25 GM (PMX) 50 ML IVPB SCH ×2 (13:53→21:48)
--- NOTE | 2017-06-09 14:20 | PN ---
Date/Time of Note Date/Time of Note DATE: 06/09/17 TIME: 14:17 Assessment/Plan VTE Prophylaxis VTE Prophylaxis Intervention: SCD's Lines/Catheters IV Catheter Type (from Nrs): Peripheral IV Urinary Cath still in place: Yes Reason Cath still needed: urinary retention Assessment/Plan Chief Complaint/Hosp Course Assessment/Plan #. J tube malfunction - Patient sent from [facility] for replacement of Jtube - Dr. Danielson called by ED and replaced Jtube -working well -back on tube feeds #leukocytosis -on vanco for ESBL UTI from prior hospitalization -added zosyn -blood cultures and UA pending #hematuria -mild, likely cause of low hgb -stable for now #REJI -very mild increase -monitor, increase fluids -consult nephro if no resolution #. Chronic respiratory failure with trach on vent - continue current settings - Pulmonology consulted and appreciated recommendations. Continue on vent support with bronchodilators #. ESBL UTI - Patient currently undergoing tx at [facility]. Vancomycin until 06/10 - patient afebrile but wbc count increasing #. Anemia - FOBT neg - Iron studies show low iron. start replacement - Will hold Lovenox and aspirin for now - Start PPI IV BID for ?GI bleed. ?mildly bloody martinez, likely patient ripped out or manipulated martinez. cleared up for now -GI recs appreciated, will monitor, if hgb stable, will suggest outpatient workup #. Hyponatremia- improved #. Hemiplegia - Per Records, patient gets out of bed to [facility] - contraction of lower extremities #. HTN - continue current medications - stable #. Dementia #. CVA - hold aspirin for now due to ?bleed #. Disposition - J tube replaced - workup for leukocytosis pending Problems: Subjective 24 Hr Interval Summary Free Text/Dictation hematuria resolved Exam/Review of Systems Vital Signs Vitals Vital Signs Date Time Temp Pulse Resp B/P Pulse Ox O2 Delivery O2 Flow Rate FiO2 06/09/17 13:00 83 20 99 30 06/09/17 11:56 98.6 109/58 06/07/17 19:55 Mechanical Ventilator Intake and Output 06/08/17 06/08/17 06/09/17 14:59 22:59 06:59 Intake Total 1470 ml 780 ml Output Total 550 ml 2300 ml Balance 920 ml -1520 ml Exam Constitutional: alert, oriented, well developed, No distress ENMT: trach in place, no dentition Neck: non-tender, supple Respiratory: clear to auscultation, diminished breath sounds bilaterally, No wheezing Cardiovascular: nl pulses, regular rate and rhythm, No murmurs/extra sounds, No systolic murmur Gastrointestinal: non-tender, G tube site clean and dry with no discharge, erythema, or drainage, soft, No distended, No rebound or guarding Musculoskeletal: ontracted lower extremities Extremities: No cyanosis, No edema Results Result Diagram: 06/09/1752706/09/17527 Results 24 hrs Laboratory Tests Test 06/09/17 05:28 White Blood Count 18.2 #H Red Blood Count 3.15 L Hemoglobin 8.8 L Hematocrit 26.6 L Mean Corpuscular Volume 84.4 Mean Corpuscular Hemoglobin 27.9 L Mean Corpuscular Hemoglobin Concent 33.1 Red Cell Distribution Width 17.1 H Platelet Count 246 Mean Platelet Volume 8.7 Neutrophils % 90.8 H Lymphocytes % 4.1 L Monocytes % 2.9 Eosinophils % 0.1 Basophils % 0.1 Nucleated Red Blood Cells % 0.0 Neutrophils # 16.5 H Lymphocytes # 0.8 Monocytes # 0.5 Eosinophils # 0.0 Basophils # 0.0 Nucleated Red Blood Cells # 0.0 Sodium Level 143 Potassium Level 3.0 L Chloride Level 109 Carbon Dioxide Level 28 Anion Gap 9 # Blood Urea Nitrogen 35 H Creatinine 1.26 H Glucose Level 179 Calcium Level 8.1 L Phosphorus Level 2.8 Magnesium Level 1.7 Albumin 2.1 L Random Vancomycin Level 17.8 Medications Medications Current Medications Docusate Sodium (Colace) 100 mg BID PRN PO constipation; Start 06/06/17 at 16: 30 Metoprolol Tartrate (Lopressor) 25 mg BID GTB Last administered on 06/08/17 22:39; Admin Dose 25 MG; Start 06/06/17 at 21:00 Tamsulosin HCl (Flomax) 0.4 mg HS PO Last administered on 06/08/17 22:39; Admin Dose 0.4 MG; Start 06/06/17 at 21:00 Ondansetron HCl (Zofran Inj) 4 mg Q6H PRN IV NAUSEA AND/OR VOMITING; Start at 16:30 Acetaminophen (Tylenol Tab) 650 mg Q6H PRN GTB PAIN LEVEL 1-3 OR FEVER; Start 06/06/17 at 16:30 Magnesium Hydroxide (Milk Of Mag) 30 ml DAILY PRN GTB CONSTIPATION; Start at 16:30 Enoxaparin Sodium (Lovenox) 40 mg DAILY SC ; Start 06/07/17 at 09:00; Status Future Hold Pantoprazole (Protonix Iv) 40 mg BID@06,18 IV Last administered on 06/09/17 06:16; Admin Dose 40 MG; Start 06/07/17 at 06:00 Miscellaneous Information (Pending Santyl Order For Wound Care) This patient felipe... PRN PRN XX WOUND CARE; Start 06/06/17 at 23:00 Collagenase (Santyl) 1 applic DAILY TOP Last administered on 06/09/17 08:51; Admin Dose 1 APPLIC; Start 06/07/17 at 09:00 Sodium Hypochlorite 1 applic 1 applic BID IRR Last administered on 06/09/17 08:51; Admin Dose 1 APPLIC; Start 06/07/17 at 14:00 Sodium Chloride 1,000 ml @ 50 mls/hr Q20H IV Last administered on 06/09/17 09:16; Admin Dose 50 MLS/HR; Start 06/08/17 at 11:00 Vancomycin HCl 100 ml @ 100 mls/hr Q36H IVPB Last administered on 06/09/17 12:22; Admin Dose 100 MLS/HR; Start 06/09/17 at 12:00 Piperacillin Sod/ Tazobactam Sod (Zosyn 2.25gm/ 50ml (Pmx)) 50 ml @ 100 mls/hr Q6 IVPB Last administered on 06/09/17 13:53; Admin Dose 100 MLS/HR; Start at 13:31 JULIANNA WALDEN Jun 09, 2017 14:20
[2017-06-09 16:20] LABS: ADD UMIC YES; UR ASCORBIC ACID 40 mg/dL (NEGATIVE); UR BILIRUBIN (Dip) NEGATIVE (NEGATIVE); UR BLOOD (Dip) 3+ mg/dL (NEGATIVE); UR BUDDING YEAST MANY /HPF (NONE SEEN); UR CLARITY CLOUDY (CLEAR); UR COLOR YELLOW (YELLOW); UR GLUCOSE (Dip) 1+ mg/dL (NEGATIVE); UR KETONES (Dip) NEGATIVE (NEGATIVE); UR LEUKOCYTE ESTERASE (Dip) 2+ Leu/ul (NEGATIVE); UR MUCUS FEW /HPF (NONE SEEN); UR NITRITE (Dip) NEGATIVE (NEGATIVE); UR RBC > 182 /HPF (0-5); UR SPECIFIC GRAVITY (Dip) 1.016 (1.003-1.030); UR SQUAMOUS EPITHELIAL CELL FEW /HPF (FEW); UR TOTAL PROTEIN (Dip) 2+ mg/dl (NEGATIVE); UR UROBILINOGEN (Dip) NEGATIVE (NEGATIVE)
--- NOTE | 2017-06-09 18:32 | CONS ---
Date/Time of Note Date/Time of Note DATE: 06/09/17 TIME: 18:29 Assessment/Plan Assessment/Plan Additional Assessment/Plan IMPRESSION: 1. Malfunctioning GJ tube. 2. Vent dependent respiratory failure. 3. Chronic anemia. 4. History of aspiration pneumonia. 5. Cerebrovascular accident. 6. Encephalopathy. 7. S/P GJ tube 8. Leukocytosis, mostly related to UTI,ESBL Plan tolerating feeding advance feeding as per dietitian instruction Discussed with the staff nurse, to resume feeding through jejunostomy port and all medication through gastrostomy port Antibiotics as per primary Consultation Date/Type/Reason Admit Date/Time Jun 08, 2017 at 12:13 24 HR Interval Summary Constitutional: improved, no complaints Exam/Review of Systems Vital Signs Vitals Vital Signs Date Time Temp Pulse Resp B/P Pulse Ox O2 Delivery O2 Flow Rate FiO2 06/09/17 17:51 98 56 100 30 06/09/17 11:56 98.6 109/58 06/07/17 19:55 Mechanical Ventilator Intake and Output 06/08/17 06/08/17 06/09/17 15:00 23:00 07:00 Intake Total 1470 ml 780 ml Output Total 550 ml 2300 ml Balance 920 ml -1520 ml Exam Eyes: EOMI, PERRL, nl conjunctiva, nl lids, nl sclera Respiratory: other (Patient is on vent) Cardiovascular: nl pulses, regular rate and rhythm Gastrointestinal: nl liver, spleen, non-tender, other (Patient was fed through gastrostomy port instead of jejunostomy port), soft Extremities: normal pulses Results Result Diagram: 06/09/17 0528 06/09/1728 Results 24 hrs Laboratory Tests Test 06/09/17 05:28 06/09/17 13:10 White Blood Count 18.2 #H Red Blood Count 3.15 L Hemoglobin 8.8 L Hematocrit 26.6 L Mean Corpuscular Volume 84.4 Mean Corpuscular Hemoglobin 27.9 L Mean Corpuscular Hemoglobin Concent 33.1 Red Cell Distribution Width 17.1 H Platelet Count 246 Mean Platelet Volume 8.7 Neutrophils % 90.8 H Lymphocytes % 4.1 L Monocytes % 2.9 Eosinophils % 0.1 Basophils % 0.1 Nucleated Red Blood Cells % 0.0 Neutrophils # 16.5 H Lymphocytes # 0.8 Monocytes # 0.5 Eosinophils # 0.0 Basophils # 0.0 Nucleated Red Blood Cells # 0.0 Sodium Level 143 Potassium Level 3.0 L Chloride Level 109 Carbon Dioxide Level 28 Anion Gap 9 # Blood Urea Nitrogen 35 H Creatinine 1.26 H Glucose Level 179 Calcium Level 8.1 L Phosphorus Level 2.8 Magnesium Level 1.7 Albumin 2.1 L Random Vancomycin Level 17.8 Urine Color YELLOW Urine Clarity CLOUDY A Urine pH 6.0 Urine Specific [place] 1.016 Urine Ketones NEGATIVE Urine Nitrite NEGATIVE Urine Bilirubin NEGATIVE Urine Urobilinogen NEGATIVE Urine Leukocyte Esterase 2+ H Urine Microscopic RBC > 182 H Urine Microscopic WBC 122 H Urine Squamous Epithelial Cells FEW Urine Mucus FEW A Urine Yeast (Budding) MANY A Urine Hemoglobin 3+ H Urine Glucose 1+ H Urine Total Protein 2+ H Medications Medications Current Medications Docusate Sodium (Colace) 100 mg BID PRN PO constipation; Start 06/06/17 at 16: 30 Metoprolol Tartrate (Lopressor) 25 mg BID GTB Last administered on 06/08/17 22:39; Admin Dose 25 MG; Start 06/06/17 at 21:00 Tamsulosin HCl (Flomax) 0.4 mg HS PO Last administered on 06/08/17 22:39; Admin Dose 0.4 MG; Start 06/06/17 at 21:00 Ondansetron HCl (Zofran Inj) 4 mg Q6H PRN IV NAUSEA AND/OR VOMITING; Start at 16:30 Acetaminophen (Tylenol Tab) 650 mg Q6H PRN GTB PAIN LEVEL 1-3 OR FEVER; Start 06/06/17 at 16:30 Magnesium Hydroxide (Milk Of Mag) 30 ml DAILY PRN GTB CONSTIPATION; Start at 16:30 Enoxaparin Sodium (Lovenox) 40 mg DAILY SC ; Start 06/07/17 at 09:00; Status Future Hold Pantoprazole (Protonix Iv) 40 mg BID@18 IV Last administered on 06/09/17 06:16; Admin Dose 40 MG; Start 06/07/17 at 06:00 Miscellaneous Information (Pending Santyl Order For Wound Care) This patient felipe... PRN PRN XX WOUND CARE; Start 06/06/17 at 23:00 Collagenase (Santyl) 1 applic DAILY TOP Last administered on 06/09/17 08:51; Admin Dose 1 APPLIC; Start 06/07/17 at 09:00 Sodium Hypochlorite 1 applic 1 applic BID IRR Last administered on 06/09/17 08:51; Admin Dose 1 APPLIC; Start 06/07/17 at 14:00 Sodium Chloride 1,000 ml @ 50 mls/hr Q20H IV Last administered on 06/09/17 09:16; Admin Dose 50 MLS/HR; Start 06/08/17 at 11:00 Vancomycin HCl 100 ml @ 100 mls/hr Q36H IVPB Last administered on 06/09/17 12:22; Admin Dose 100 MLS/HR; Start 06/09/17 at 12:00 Piperacillin Sod/ Tazobactam Sod (Zosyn 2.25gm/ 50ml (Pmx)) 50 ml @ 100 mls/hr Q6 IVPB Last administered on 06/09/17 13:53; Admin Dose 100 MLS/HR; Start at 13:31 ELIZABETH AVILA MD Jun 09, 2017 18:32
[2017-06-09] MEDS: TAMSULOSIN (SR) 0.4 MG CAP PO SCH (21:48)
[2017-06-10] VITALS (24 sets, daily range): BP systolic 91–135; BP diastolic 51–63; PULSE 66–76; RESP 19–34
[2017-06-10] MEDS: PIPER-TAZO 2.25 GM (PMX) 50 ML IVPB SCH ×4 (00:21→18:13)
[2017-06-10] MEDS: SOD CHLORIDE 0.45% 1,000 ML IV SCH ×2 (03:00→10:57)
[2017-06-10 05:50] LABS: ABNORMAL IP MESSAGE 1; BASOPHILS % 0.2 % (0.0-2.0); EOSINOPHILS # 0.2 10^3/ul (0.0-0.5); EOSINOPHILS % 1.7 % (0.0-7.0); HEMATOCRIT 23.4 % (42.0-52.0); HEMOGLOBIN 7.5 g/dl (14.0-18.0); LYMPHOCYTES # 0.5 10^3/ul (0.8-2.9); LYMPHOCYTES % 4.4 % (15.0-51.0); MEAN CORPUSCULAR HEMOGLOBIN 27.8 pg (29.0-33.0); MEAN CORPUSCULAR HGB CONC 32.1 g/dl (32.0-37.0); MEAN CORPUSCULAR VOLUME 86.7 fl (82.0-101.0); MEAN PLATELET VOLUME 8.8 fl (7.4-10.4); MONOCYTE # 0.4 10^3/ul (0.3-0.9); MONOCYTES % 3.4 % (0.0-11.0); NEUTROPHIL # 10.9 10^3/ul (1.6-7.5); NEUTROPHILS % 88.8 % (39.0-77.0); PLATELET COUNT 202 10^3/UL (140-415); POSITIVE DIFF @See below; RED CELL DISTRIBUTION WIDTH 17.2 % (11.5-14.5); WHITE BLOOD COUNT 12.3 10^3/ul (4.8-10.8)
[2017-06-10] MEDS: PANTOPRAZOLE 40 MG INJ IV SCH (06:11)
[2017-06-10 07:21] LABS: CALCIUM 7.9 mg/dl (8.4-10.2); CREATININE 1.19 mg/dl (0.61-1.24); MAGNESIUM 1.5 mg/dl (1.7-2.5); PHOSPHORUS 2.5 mg/dl (2.5-4.9); POTASSIUM 3.5 mmol/L (3.5-5.1)
[2017-06-10] MEDS: COLLAGENASE 30 GM TUBE TOP SCH (09:00)
[2017-06-10] MEDS: METOPROLOL 25 MG TAB GTB SCH ×2 (10:56→21:25)
[2017-06-10] MEDS: SODIUM HYPOCHLORITE 0.125% 473 ML BTL IRR SCH ×2 (10:58→21:26)
--- NOTE | 2017-06-10 12:56 | CONS ---
DATE OF ADMISSION: 06/08/2017 DATE OF CONSULTATION: 06/10/2017 TYPE OF CONSULTATION: Infectious disease. REASON FOR CONSULTATION: Antibiotic management. HISTORY OF PRESENT ILLNESS: Nick Ferrera is an 87-year-old male with numerous problems who comes in with J-tube malfunction. His past problems include: 1. Chronic respiratory failure. 2. Ventilator-dependent respiratory failure. 3. History of cerebrovascular accident. 4. Dementia. 5. Hypertension. 6. Hemiplegia. 7. GERD. 8. Anemia of chronic disease. 9. Chronic obstructive pulmonary disease. 10. ESBL UTI. Currently being treated. The patient has a malfunctioning J-tube the ED physician, placed a G-tube in the emergency room. Th e patient also has coronary artery disease. His problems on admission were J-tube malfunction, resp iratory failure ESBL UTI, anemia, hyponatremia hemiplegia, hypertension, dementia, CVA. HOSPITAL COURSE: Blood cultures are negative. Urine cultures are negative. White count today is 1 2.3, it was 18.2 on the 19. H and H 7.5 and 23.4, platelet count of 202,000. BUN and creatinine are 36/1.19. Urine on admission was 2+ leukocyte esterase and 122 white cells per high-power field. Occult blood was negative. The patient is currently on vancomycin and Zosyn. A chest x-ray was n ot done on this admission, he was seen by Dr. Danielson to resume feeding tube jejunostomy port and all medications through the gastrostomy port. The patient has a G-tube and a J-tube. PAST MEDICAL HISTORY: Operations as outlined. FAMILY HISTORY: Noncontributory. SOCIAL HISTORY: Does not smoke, drink or abused drugs. He is in a care home. ALLERGIES: NONE TO PENICILLIN, SULFA OR FOODS. MEDICATIONS: Per chart. REVIEW OF SYSTEMS: Noncontributory. PHYSICAL EXAMINATION: GENERAL: The patient is an elderly, chronically ill-appearing male who is demented, in no acute dis tress. VITAL SIGNS: Stable. He is afebrile. SKIN: Without generalized rash. HEENT: Within normal limits. NECK: Tracheostomy in place. The patient is edentulous. NECK: Supple. LYMPH NODES: None palpable. CHEST: Decreased breath sounds at the bases. HEART: Without murmur or gallop. ABDOMEN: Soft, nontender, without organosplenomegaly or masses. He has a J-tube and a G-tube. EXTREMITIES: Without cyanosis, clubbing, or edema. He is contractured. RECTAL AND GENITAL: Deferred. NEUROLOGIC: No focal neurological abnormality. IMPRESSION AND PLAN: The patient currently is on vancomycin and Zosyn. It is unclear why he is on the antibiotic therapy. He may have aspirated and we should check a chest x-ray for that. I will d ictate my findings to the hospitalist. Dictated By: JACKIE ENGLISH MD, JD/FOX Conf#: [id number] DID#: [id number]
--- NOTE | 2017-06-10 13:15 | RADRPT ---
PROCEDURE: XR Chest. CLINICAL INDICATION: Leukocytosis. TECHNIQUE: Single frontal view. COMPARISON: 01/25/2014. FINDINGS: This is a limited study due to the patients left arm overlying the left lateral and lower chest. The tracheostomy tube is in satisfactory position. There is patchy air space disease in the left mid an d lower lung zones consistent with pneumonia. There is mild chronic interstitial disease bilaterally . The lungs are otherwise clear. The heart size is normal. There is calcification in the aorta consistent with atherosclerosis. There is no pleural effusion. There is no pneumothorax. IMPRESSION: 1. Limited study. 2. Tracheostomy tube. 3. Left mid and lower lung zone pneumonia. 4. Mild chronic interstitial disease bilaterally. 5. Atherosclerosis. 6. Otherwise unremarkable chest radiograph. RPTAT: QQ .Kwabena Saeed MD, Date Time Electronically viewed and signed by .Kwabena Saeed MD, on 06/10/2017 13:15 .R/
--- NOTE | 2017-06-10 15:31 | CONS ---
Date/Time of Note Date/Time of Note DATE: 06/10/17 TIME: 15:31 Assessment/Plan Assessment/Plan Additional Assessment/Plan IMPRESSION: 1. Malfunctioning GJ tube. 2. Vent dependent respiratory failure. 3. Chronic anemia. Hematocrit dropped to 23, no evidence of active bleeding at this point 4. History of aspiration pneumonia. 5. Cerebrovascular accident. 6. Encephalopathy. 7. S/P GJ tube 8. Leukocytosis, mostly related to UTI,ESBL Plan tolerating feeding advance feeding as per dietitian instruction Discussed with the staff nurse, to resume feeding through jejunostomy port and all medication through gastrostomy port Antibiotics as per ID Monitor H&H Consultation Date/Type/Reason Admit Date/Time Jun 08, 2017 at 12:13 24 HR Interval Summary Constitutional: improved, no complaints Exam/Review of Systems Vital Signs Vitals Vital Signs Date Time Temp Pulse Resp B/P Pulse Ox O2 Delivery O2 Flow Rate FiO2 06/10/17 15:14 79 20 98 30 06/10/17 11:52 98.0 91/51 06/07/17 19:55 Mechanical Ventilator Intake and Output 06/09/17 06/09/17 06/10/17 15:00 23:00 07:00 Intake Total 920 ml 1020 ml Output Total 350 ml 550 ml Balance 570 ml 470 ml Exam Constitutional: alert, oriented, well developed Psych: nl mood/affect, no complaints Head: atraumatic, normocephalic Eyes: EOMI, PERRL, nl conjunctiva, nl lids, nl sclera ENMT: nl external ears & nose, nl lips & teeth, nl nasal mucosa & septum Neck: non-tender, supple Respiratory: clear to auscultation, normal air movement Cardiovascular: nl pulses, regular rate and rhythm Gastrointestinal: nl liver, spleen, non-tender, soft Musculoskeletal: nl extremities to inspection, nl gait and stance Extremities: normal pulses Neurological: LIVE AMMUNITION INSPECTOR II-XII intact, nl mental status, nl speech, nl strength Skin: nl turgor, No rash or lesions Lymph: nl lymph nodes Results Result Diagram: 06/10/1733 06/10/17 0533 Results 24 hrs Laboratory Tests Test 06/10/17 05:33 White Blood Count 12.3 #H Red Blood Count 2.70 L Hemoglobin 7.5 L Hematocrit 23.4 L Mean Corpuscular Volume 86.7 Mean Corpuscular Hemoglobin 27.8 L Mean Corpuscular Hemoglobin Concent 32.1 Red Cell Distribution Width 17.2 H Platelet Count 202 Mean Platelet Volume 8.8 Neutrophils % 88.8 H Lymphocytes % 4.4 L Monocytes % 3.4 Eosinophils % 1.7 Basophils % 0.2 Nucleated Red Blood Cells % 0.0 Neutrophils # 10.9 H Lymphocytes # 0.5 L Monocytes # 0.4 Eosinophils # 0.2 Basophils # 0.0 Nucleated Red Blood Cells # 0.0 Sodium Level 143 Potassium Level 3.5 Chloride Level 112 H Carbon Dioxide Level 26 Anion Gap 9 Blood Urea Nitrogen 36 H Creatinine 1.19 Glucose Level 136 # Calcium Level 7.9 L Phosphorus Level 2.5 Magnesium Level 1.5 L Medications Medications Current Medications Docusate Sodium (Colace) 100 mg BID PRN PO constipation; Start 06/06/17 at 16: 30 Metoprolol Tartrate (Lopressor) 25 mg BID GTB Last administered on 06/10/17 10:56; Admin Dose 25 MG; Start 06/06/17 at 21:00 Tamsulosin HCl (Flomax) 0.4 mg HS PO Last administered on 06/09/17 21:48; Admin Dose 0.4 MG; Start 06/06/17 at 21:00 Ondansetron HCl (Zofran Inj) 4 mg Q6H PRN IV NAUSEA AND/OR VOMITING; Start at 16:30 Acetaminophen (Tylenol Tab) 650 mg Q6H PRN GTB PAIN LEVEL 1-3 OR FEVER; Start 06/06/17 at 16:30 Magnesium Hydroxide (Milk Of Mag) 30 ml DAILY PRN GTB CONSTIPATION; Start at 16:30 Enoxaparin Sodium (Lovenox) 40 mg DAILY SC ; Start 06/07/17 at 09:00; Status Future Hold Pantoprazole (Protonix Iv) 40 mg BID@18 IV Last administered on 06/10/17 06:11; Admin Dose 40 MG; Start 06/07/17 at 06:00 Miscellaneous Information (Pending Santyl Order For Wound Care) This patient felipe... PRN PRN XX WOUND CARE; Start 06/06/17 at 23:00 Collagenase (Santyl) 1 applic DAILY TOP Last administered on 06/10/17 09:00; Admin Dose 1 APPLIC; Start 06/07/17 at 09:00 Sodium Hypochlorite 1 applic 1 applic BID IRR Last administered on 06/10/17 10:58; Admin Dose 1 APPLIC; Start 06/07/17 at 14:00 Sodium Chloride 1,000 ml @ 50 mls/hr Q20H IV Last administered on 06/10/17 10:57; Admin Dose 50 MLS/HR; Start 06/08/17 at 11:00 Vancomycin HCl 100 ml @ 100 mls/hr Q36H IVPB Last administered on 06/09/17 12:22; Admin Dose 100 MLS/HR; Start 06/09/17 at 12:00 Piperacillin Sod/ Tazobactam Sod (Zosyn 2.25gm/ 50ml (Pmx)) 50 ml @ 100 mls/hr Q6 IVPB Last administered on 06/10/17 12:12; Admin Dose 100 MLS/HR; Start at 13:31 ELIZABETH AVILA MD Jun 10, 2017 15:31
--- NOTE | 2017-06-10 16:52 | PN ---
Date/Time of Note Date/Time of Note DATE: 06/10/17 TIME: 16:46 Assessment/Plan VTE Prophylaxis VTE Prophylaxis Intervention: SCD's Lines/Catheters IV C[facility]ter Type (from [facility]): Peripheral IV Urinary Cath still in place: Yes Reason Cath still needed: urinary retention Assessment/Plan Chief Complaint/Hosp Course Assessment/Plan #anemia -?true read -fecal occult negative -repeat labs tomorrow -starting iron replacement, ordered ferritin #. J tube malfunction - Patient sent from [facility] for replacement of Jtube - Dr. Danielson called by ED and replaced Jtube -working well -back on tube feeds #PNA -seen on chest xray -ID recs appreciated -broad spectrum abx #leukocytosis -on vanco for ESBL UTI from prior hospitalization -added zosyn -blood cultures and UA pending -downtrended #hematuria -mild, likely cause of low hgb -stable #REJI -very mild increase -monitor, increase fluids -consult nephro if no resolution #. Chronic respiratory failure with trach on vent - continue current settings - Pulmonology consulted and appreciated recommendations. Continue on vent support with bronchodilators #. ESBL UTI - Patient currently undergoing tx at [facility]. Vancomycin until 06/10 - patient afebrile but wbc count increasing #. Anemia - FOBT neg - Iron studies show low iron. start replacement - Will hold Lovenox and aspirin for now - Start PPI IV BID for ?GI bleed. ?mildly bloody martinez, likely patient ripped out or manipulated martinez. cleared up for now -GI recs appreciated, will monitor, if hgb stable, will suggest outpatient workup #. Hyponatremia- improved #. Hemiplegia - Per Records, patient gets out of bed to [facility] - contraction of lower extremities #. HTN - continue current medications - stable #. Dementia #. CVA - hold aspirin for now due to ?bleed #. Disposition - J tube replaced - workup for anemia/PNA pending Problems: Subjective 24 Hr Interval Summary Free Text/Dictation no acute change overnight Exam/Review of Systems Vital Signs Vitals Vital Signs Date Time Temp Pulse Resp B/P Pulse Ox O2 Delivery O2 Flow Rate FiO2 06/10/17 16:27 74 06/10/17 15:45 98.8 19 114/56 99 06/10/17 15:14 30 06/07/17 19:55 Mechanical Ventilator Intake and Output 06/09/17 06/09/17 06/10/17 14:59 22:59 06:59 Intake Total 920 ml 1020 ml Output Total 350 ml 550 ml Balance 570 ml 470 ml Exam Constitutional: alert, oriented, well developed, No distress ENMT: trach in place, no dentition Neck: non-tender, supple Respiratory: clear to auscultation, diminished breath sounds bilaterally, No wheezing Cardiovascular: nl pulses, regular rate and rhythm, No murmurs/extra sounds, No systolic murmur Gastrointestinal: non-tender, G tube site clean and dry with no discharge, erythema, or drainage, soft, No distended, No rebound or guarding Musculoskeletal: contracted lower and upper extremities Extremities: No cyanosis, No edema Results Result Diagram: 06/10/1733 06/10/17532 Results 24 hrs Laboratory Tests Test 06/10/17 05:33 White Blood Count 12.3 #H Red Blood Count 2.70 L Hemoglobin 7.5 L Hematocrit 23.4 L Mean Corpuscular Volume 86.7 Mean Corpuscular Hemoglobin 27.8 L Mean Corpuscular Hemoglobin Concent 32.1 Red Cell Distribution Width 17.2 H Platelet Count 202 Mean Platelet Volume 8.8 Neutrophils % 88.8 H Lymphocytes % 4.4 L Monocytes % 3.4 Eosinophils % 1.7 Basophils % 0.2 Nucleated Red Blood Cells % 0.0 Neutrophils # 10.9 H Lymphocytes # 0.5 L Monocytes # 0.4 Eosinophils # 0.2 Basophils # 0.0 Nucleated Red Blood Cells # 0.0 Sodium Level 143 Potassium Level 3.5 Chloride Level 112 H Carbon Dioxide Level 26 Anion Gap 9 Blood Urea Nitrogen 36 H Creatinine 1.19 Glucose Level 136 # Calcium Level 7.9 L Phosphorus Level 2.5 Magnesium Level 1.5 L Medications Medications Current Medications Docusate Sodium (Colace) 100 mg BID PRN PO constipation; Start 06/06/17 at 16: 30 Metoprolol Tartrate (Lopressor) 25 mg BID GTB Last administered on 06/10/17 10:56; Admin Dose 25 MG; Start 06/06/17 at 21:00 Tamsulosin HCl (Flomax) 0.4 mg HS PO Last administered on 06/09/17 21:48; Admin Dose 0.4 MG; Start 06/06/17 at 21:00 Ondansetron HCl (Zofran Inj) 4 mg Q6H PRN IV NAUSEA AND/OR VOMITING; Start at 16:30 Acetaminophen (Tylenol Tab) 650 mg Q6H PRN GTB PAIN LEVEL 1-3 OR FEVER; Start 06/06/17 at 16:30 Magnesium Hydroxide (Milk Of Mag) 30 ml DAILY PRN GTB CONSTIPATION; Start at 16:30 Enoxaparin Sodium (Lovenox) 40 mg DAILY SC ; Start 06/07/17 at 09:00; Status Future Hold Miscellaneous Information (Pending Santyl Order For Wound Care) This patient felipe... PRN PRN XX WOUND CARE; Start 06/06/17 at 23:00 Collagenase (Santyl) 1 applic DAILY TOP Last administered on 06/10/17 09:00; Admin Dose 1 APPLIC; Start 06/07/17 at 09:00 Sodium Hypochlorite 1 applic 1 applic BID IRR Last administered on 06/10/17 10:58; Admin Dose 1 APPLIC; Start 06/07/17 at 14:00 Sodium Chloride 1,000 ml @ 50 mls/hr Q20H IV Last administered on 06/10/17 10:57; Admin Dose 50 MLS/HR; Start 06/08/17 at 11:00 Vancomycin HCl 100 ml @ 100 mls/hr Q36H IVPB Last administered on 06/09/17 12:22; Admin Dose 100 MLS/HR; Start 06/09/17 at 12:00 Piperacillin Sod/ Tazobactam Sod (Zosyn 2.25gm/ 50ml (Pmx)) 50 ml @ 100 mls/hr Q6 IVPB Last administered on 06/10/17 12:12; Admin Dose 100 MLS/HR; Start at 13:31 Lansoprazole (Prevacid) 30 mg BID@06,18 GTB ; Start 06/10/17 at 18:00 JULIANNA WALDEN Jun 10, 2017 16:52
[2017-06-10] MEDS ORDERED: ALBUTEROL/IPRATROPIUM (NEB) 3 ML AMP HHN PRN (17:00)
[2017-06-10] MEDS: LANSOPRAZOLE 30 MG CAP GTB SCH (18:13)
[2017-06-10] MEDS ORDERED: ALBUTEROL/IPRATROPIUM (NEB) 3 ML AMP HHN SCH (20:00)
[2017-06-10] MEDS: ALBUTEROL HFA 8 GM INHALER INH SCH (21:09)
[2017-06-10] MEDS: IPRATROPIUM (HFA) 12.9 GM INHALER INH SCH (21:09)
[2017-06-10] MEDS: ASCORBIC ACID 500 MG TAB GTB SCH (21:25)
[2017-06-10] MEDS: TAMSULOSIN (SR) 0.4 MG CAP PO SCH (21:25)
[2017-06-11] VITALS (24 sets, daily range): BP systolic 118–175; BP diastolic 61–79; PULSE 69–80; RESP 13–32
[2017-06-11] MEDS: VANCOMYCIN 500MG/NS (PMX) 100 ML IVPB SCH (00:24)
[2017-06-11] MEDS: PIPER-TAZO 2.25 GM (PMX) 50 ML IVPB SCH ×4 (02:25→18:17)
[2017-06-11] MEDS: LANSOPRAZOLE 30 MG CAP GTB SCH (06:33)
[2017-06-11] MEDS: ALBUTEROL HFA 8 GM INHALER INH SCH ×3 (07:45→19:47)
[2017-06-11] MEDS: IPRATROPIUM (HFA) 12.9 GM INHALER INH SCH ×3 (07:45→19:47)
[2017-06-11] MEDS: COLLAGENASE 30 GM TUBE TOP SCH (09:00)
[2017-06-11] MEDS: METOPROLOL 25 MG TAB GTB SCH ×2 (09:37→21:22)
[2017-06-11] MEDS: ASCORBIC ACID 500 MG TAB GTB SCH ×2 (09:37→21:22)
[2017-06-11] MEDS: FERROUS SULFATE 60 MG/ML 5ML CUP GTB SCH (09:37)
[2017-06-11] MEDS: SODIUM HYPOCHLORITE 0.125% 473 ML BTL IRR SCH ×2 (09:38→21:22)
[2017-06-11 09:49] LABS: ABNORMAL IP MESSAGE 1; BASOPHILS % 0.1 % (0.0-2.0); EOSINOPHILS # 0.3 10^3/ul (0.0-0.5); HEMATOCRIT 24.3 % (42.0-52.0); HEMOGLOBIN 7.5 g/dl (14.0-18.0); LYMPHOCYTES # 0.5 10^3/ul (0.8-2.9); LYMPHOCYTES % 3.5 % (15.0-51.0); MEAN CORPUSCULAR HEMOGLOBIN 27.5 pg (29.0-33.0); MEAN CORPUSCULAR HGB CONC 30.9 g/dl (32.0-37.0); MEAN PLATELET VOLUME 9.7 fl (7.4-10.4); MONOCYTE # 0.4 10^3/ul (0.3-0.9); MONOCYTES % 2.7 % (0.0-11.0); NEUTROPHIL # 13.8 10^3/ul (1.6-7.5); NEUTROPHILS % 90.5 % (39.0-77.0); PLATELET COUNT 255 10^3/UL (140-415); POSITIVE DIFF @See below; RED BLOOD COUNT 2.73 10^6/ul (4.70-6.10); RED CELL DISTRIBUTION WIDTH 17.4 % (11.5-14.5); WHITE BLOOD COUNT 15.3 10^3/ul (4.8-10.8)
[2017-06-11 10:23] LABS: CALCIUM 7.7 mg/dl (8.4-10.2); CREATININE 1.22 mg/dl (0.61-1.24); MAGNESIUM 1.5 mg/dl (1.7-2.5); PHOSPHORUS 3.1 mg/dl (2.5-4.9); POTASSIUM 3.4 mmol/L (3.5-5.1)
--- NOTE | 2017-06-11 14:56 | PN ---
DATE: 06/11/2017 SUBJECTIVE: No events overnight. The patient is lying comfortably in bed. No fevers. LABORATORY DATA: WBC today 15.3 with platelets 255, H and H 7.5 and 24.3, neutrophils 90.5, BUN 36 , creatinine 1.12. MICROBIOLOGY: Blood cultures negative. Urine culture growing yeast. ANTIMICROBIALS: The patient is on: 1. Zosyn. 2. Vancomycin. INDWELLINGS: Trach, PEG, Briones. DIAGNOSTICS: Chest x-ray from yesterday revealed left middle and lower lung zone pneumonia. PHYSICAL EXAMINATION: GENERAL: Chronically ill-appearing, elderly man who is in no distress. HEENT: Head atraumatic, normocephalic. Sclerae anicteric. Buccal mucosa dry. NECK: Supple. Tracheostomy present. CHEST: Rise symmetrical. Breath sounds diminished to bases with scattered rhonchi. HEART: S1, S2. ABDOMEN: Soft, bowel tones present. EXTREMITIES: Contractured. SKIN: With multiple chronic decubitus. ASSESSMENT: 1. Systemic inflammatory response syndrome with some ongoing leukocytosis. 2. Healthcare-associated pneumonia. 3. Fungal urinary tract infection. 4. Chronic respiratory failure. 5. Dysphagia, status post GJ tube malfunction. 6. Anemia. 7. History of cerebrovascular accident. PLAN: The patient remains stable. We are going to add Diflucan to the regimen. Continue on curren t antibiotics. Continue local wound care, transfuse p.r.n. Dictated By: RAFY VELAZQUEZ AEROBICS INSTRUCTOR for JACKIE SIMMONS/FOX Conf#: [id number] DID#: [id number]
--- NOTE | 2017-06-11 15:09 | PN ---
Date/Time of Note Date/Time of Note DATE: 06/11/17 TIME: 15:06 Assessment/Plan VTE Prophylaxis VTE Prophylaxis Intervention: SCD's Lines/Catheters IV Catheter Type (from Nrs): Peripheral IV Urinary Cath still in place: Yes Reason Cath still needed: urinary retention Assessment/Plan Chief Complaint/Hosp Course Assessment/Plan #anemia -likely anemia of chronic disease/iron deficiency -no signs of bleed per GI -starting iron replacement, ordered ferritin #. J tube malfunction - Patient sent from [facility] for replacement of Jtube - Dr. Danielson called by ED and replaced Jtube -working well -back on tube feeds #PNA -seen on chest xray -ID recs appreciated -broad spectrum abx #leukocytosis -on vanco for ESBL UTI from prior hospitalization -added zosyn -blood cultures and UA pending -downtrended #hematuria -mild, likely cause of low hgb -stable #REJI -very mild increase -monitor, increase fluids -consult nephro if no resolution #. Chronic respiratory failure with trach on vent - continue current settings - Pulmonology consulted and appreciated recommendations. Continue on vent support with bronchodilators #. ESBL UTI - treatment course done #. Hyponatremia- improved #. Hemiplegia - Per Records, patient gets out of bed to [facility] [place][note 3], however doubtful - contraction of lower extremities and upper extremities #. HTN - continue current medications - stable #. Dementia #. CVA - hold aspirin for now due to ?bleed #. Disposition - J tube replaced - workup for PNA pending -finalize abx per ID and then DC back to SNF Problems: Subjective 24 Hr Interval Summary Free Text/Dictation episode of inability to void overnight, new martinez placed, monitor Exam/Review of Systems Vital Signs Vitals Vital Signs Date Time Temp Pulse Resp B/P Pulse Ox O2 Delivery O2 Flow Rate FiO2 06/11/17 12:05 69 06/11/17 11:15 97.5 21 118/63 99 06/11/17 08:13 30 06/07/17 19:55 Mechanical Ventilator Intake and Output 06/10/17 06/10/17 06/11/17 15:00 23:00 07:00 Intake Total 50 ml 1070 ml Output Total 600 ml Balance 50 ml 470 ml Exam Constitutional: alert, thin, No distress ENMT: trach in place, no dentition Neck: non-tender, supple Respiratory: corase to auscultation, diminished breath sounds bilaterally, No wheezing Cardiovascular: nl pulses, regular rate and rhythm, No murmurs/extra sounds, No systolic murmur Gastrointestinal: non-tender, J tube site clean and dry with no discharge, erythema, or drainage, soft, No distended, No rebound or guarding Musculoskeletal: contracted lower and upper extremities Extremities: No cyanosis, No edema Results Result Diagram: 06/11/1790506/11/17905 Results 24 hrs Laboratory Tests Test 06/11/17 09:06 White Blood Count 15.3 #H Red Blood Count 2.73 L Hemoglobin 7.5 L Hematocrit 24.3 L Mean Corpuscular Volume 89.0 Mean Corpuscular Hemoglobin 27.5 L Mean Corpuscular Hemoglobin Concent 30.9 L Red Cell Distribution Width 17.4 H Platelet Count 255 # Mean Platelet Volume 9.7 Neutrophils % 90.5 H Lymphocytes % 3.5 L Monocytes % 2.7 Eosinophils % 2.0 Basophils % 0.1 Nucleated Red Blood Cells % 0.0 Neutrophils # 13.8 H Lymphocytes # 0.5 L Monocytes # 0.4 Eosinophils # 0.3 Basophils # 0.0 Nucleated Red Blood Cells # 0.0 Sodium Level 144 Potassium Level 3.4 L Chloride Level 112 H Carbon Dioxide Level 27 Anion Gap 8 Blood Urea Nitrogen 36 H Creatinine 1.22 Glucose Level 141 Calcium Level 7.7 L Phosphorus Level 3.1 Magnesium Level 1.5 L Ferritin 485.0 H Medications Medications Current Medications Docusate Sodium (Colace) 100 mg BID PRN PO constipation; Start 06/06/17 at 16: 30 Metoprolol Tartrate (Lopressor) 25 mg BID GTB Last administered on 06/11/17 09:37; Admin Dose 25 MG; Start 06/06/17 at 21:00 Tamsulosin HCl (Flomax) 0.4 mg HS PO Last administered on 06/10/17 21:25; Admin Dose 0.4 MG; Start 06/06/17 at 21:00 Ondansetron HCl (Zofran Inj) 4 mg Q6H PRN IV NAUSEA AND/OR VOMITING; Start at 16:30 Acetaminophen (Tylenol Tab) 650 mg Q6H PRN GTB PAIN LEVEL 1-3 OR FEVER; Start 06/06/17 at 16:30 Magnesium Hydroxide (Milk Of Mag) 30 ml DAILY PRN GTB CONSTIPATION; Start at 16:30 Enoxaparin Sodium (Lovenox) 40 mg DAILY SC ; Start 06/07/17 at 09:00; Status Future Hold Miscellaneous Information (Pending Santyl Order For Wound Care) This patient felipe... PRN PRN XX WOUND CARE; Start 06/06/17 at 23:00 Collagenase (Santyl) 1 applic DAILY TOP Last administered on 06/10/17 09:00; Admin Dose 1 APPLIC; Start 06/07/17 at 09:00 Sodium Hypochlorite 1 applic 1 applic BID IRR Last administered on 06/11/17 09:38; Admin Dose 1 APPLIC; Start 06/07/17 at 14:00 Sodium Chloride 1,000 ml @ 50 mls/hr Q20H IV Last administered on 06/10/17 10:57; Admin Dose 50 MLS/HR; Start 06/08/17 at 11:00 Vancomycin HCl 100 ml @ 100 mls/hr Q36H IVPB Last administered on 06/11/17 00:24; Admin Dose 100 MLS/HR; Start 06/09/17 at 12:00 Piperacillin Sod/ Tazobactam Sod (Zosyn 2.25gm/ 50ml (Pmx)) 50 ml @ 100 mls/hr Q6 IVPB Last administered on 06/11/17 06:34; Admin Dose 100 MLS/HR; Start at 13:31 Lansoprazole (Prevacid) 30 mg BID@06,18 GTB Last administered on 06/11/17 06: 33; Admin Dose 30 MG; Start 06/10/17 at 18:00 Ascorbic Acid (Vitamin C) 500 mg BID GTB Last administered on 06/11/17 09:37 ; Admin Dose 500 MG; Start 06/10/17 at 21:00 Ferrous Sulfate (Feosol Liquid Cup) 300 mg DAILY GTB Last administered on 06/11 09:37; Admin Dose 300 MG; Start 06/11/17 at 09:00 Miscellaneous Information (*Rx Drug Level Order Reminder*) VANCOMYCIN TROUGH ON 05/23... ONCE ONCE XX ; Start 06/12/17 at 11:00; Stop 06/12/17 at 11:01 Fluconazole (Diflucan) 100 mg DAILY PO ; Start 06/11/17 at 15:00 JULIANNA WALDEN Jun 11, 2017 15:09
[2017-06-11] MEDS: FLUCONAZOLE 100 MG TAB PO SCH (18:17)
[2017-06-11] MEDS: SOD CHLORIDE 0.45% 1,000 ML IV SCH (18:18)
[2017-06-11] MEDS: TAMSULOSIN (SR) 0.4 MG CAP PO SCH (21:22)
--- NOTE | 2017-06-11 22:04 | CONS ---
DATE OF ADMISSION: 06/08/2017 DATE OF CONSULTATION: GASTROINTESTINAL CONSULTATION FOLLOWUP HISTORY OF PRESENT ILLNESS: An 87-year-old male with aspiration pneumonia, respiratory failure, had G-J tube placement. He is tolerating feeding through the J-tube without any problem. OBJECTIVE NEUROLOGIC: The patient awake, moving extremities, not in distress. VITAL SIGNS: Stable. ABDOMEN: Benign. LUNGS: Clear. EXTREMITIES: All contracted. CENTRAL NERVOUS SYSTEM: Does not communicate. LABORATORY DATA: WBC is 15.3, hematocrit is 24.3. Stool for occult blood was negative. IMPRESSION: 1. Leukocytosis. 2. Aspiration pneumonia. 3. Status post G-J tube. 4. Vent-dependent respiratory failure. 5. Cerebrovascular accident. 6. Anemia. Stool for occult blood was negative. This is anemia of chronic disease. 7. Urinary tract infection. PLAN: To continue feeding. We will monitor H and H and complete the course of antibiotics. Dictated By: ELIZABETH CLARK/NTS Conf#: [id number] DID#: [id number] CC: GAVI GARCIA;*EndCC*
[2017-06-11] MEDS ORDERED: POTASSIUM CHLORIDE (SR) 20 MEQ TAB PO ONE (23:20)
[2017-06-11] MEDS ORDERED: MAGNESIUM SULFATE 2 GM/50 ML 50 ML IVPB ONE (23:30)
[2017-06-12] VITALS (24 sets, daily range): BP systolic 119–175; BP diastolic 58–85; PULSE 63–77; RESP 17–27
[2017-06-12] MEDS: PIPER-TAZO 2.25 GM (PMX) 50 ML IVPB SCH ×4 (03:20→17:08)
[2017-06-12] MEDS: IPRATROPIUM (HFA) 12.9 GM INHALER INH SCH ×3 (07:17→20:10)
[2017-06-12] MEDS: ALBUTEROL HFA 8 GM INHALER INH SCH ×3 (07:17→20:10)
[2017-06-12 08:43] LABS: BASOPHILS % 0.1 % (0.0-2.0); EOSINOPHILS # 0.3 10^3/ul (0.0-0.5); EOSINOPHILS % 2.6 % (0.0-7.0); HEMOGLOBIN 7.1 g/dl (14.0-18.0); LYMPHOCYTES # 0.7 10^3/ul (0.8-2.9); LYMPHOCYTES % 5.8 % (15.0-51.0); MEAN CORPUSCULAR HEMOGLOBIN 28.1 pg (29.0-33.0); MEAN CORPUSCULAR HGB CONC 30.9 g/dl (32.0-37.0); MEAN CORPUSCULAR VOLUME 90.9 fl (82.0-101.0); MONOCYTE # 0.4 10^3/ul (0.3-0.9); MONOCYTES % 3.1 % (0.0-11.0); NEUTROPHILS % 87.4 % (39.0-77.0); PLATELET COUNT 277 10^3/UL (140-415); RED BLOOD COUNT 2.53 10^6/ul (4.70-6.10); RED CELL DISTRIBUTION WIDTH 17.3 % (11.5-14.5); WHITE BLOOD COUNT 12.6 10^3/ul (4.8-10.8)
[2017-06-12] MEDS: ASCORBIC ACID 500 MG TAB GTB SCH ×2 (08:54→22:14)
[2017-06-12] MEDS: LANSOPRAZOLE 30 MG CAP GTB SCH (08:54)
[2017-06-12] MEDS: FLUCONAZOLE 100 MG TAB PO SCH (08:54)
[2017-06-12] MEDS: METOPROLOL 25 MG TAB GTB SCH ×2 (08:55→22:15)
[2017-06-12] MEDS: FERROUS SULFATE 60 MG/ML 5ML CUP GTB SCH (08:55)
[2017-06-12] MEDS: SODIUM HYPOCHLORITE 0.125% 473 ML BTL IRR SCH ×2 (09:00→22:15)
[2017-06-12] MEDS ORDERED: LANSOPRAZOLE 30 MG CAP GTB SCH (09:00)
[2017-06-12] MEDS: COLLAGENASE 30 GM TUBE TOP SCH (09:00)
[2017-06-12 09:16] LABS: CALCIUM 7.8 mg/dl (8.4-10.2); CREATININE 1.13 mg/dl (0.61-1.24); MAGNESIUM 2.1 mg/dl (1.7-2.5); PHOSPHORUS 3.4 mg/dl (2.5-4.9); POTASSIUM 4.5 mmol/L (3.5-5.1)
[2017-06-12] MEDS: SOD CHLORIDE 0.45% 1,000 ML IV SCH (11:03)
[2017-06-12] MEDS: VANCOMYCIN 500MG/NS (PMX) 100 ML IVPB SCH ×2 (11:04→12:00)
--- NOTE | 2017-06-12 14:55 | CONS ---
Date/Time of Note Date/Time of Note DATE: 06/12/17 TIME: 14:53 Assessment/Plan Assessment/Plan Chief Complaint/Hosp Course SUBJECTIVE: No events overnight. The patient is lying comfortably in bed. No fevers. MICROBIOLOGY: Blood cultures negative. Urine culture growing Nora glabrata ANTIMICROBIALS: The patient is on: 1. Zosyn. 2. Vancomycin. 3. Fluconazole INDWELLINGS: Trach, PEG, Briones. DIAGNOSTICS: Chest x-ray from yesterday revealed left middle and lower lung zone pneumonia. PHYSICAL EXAMINATION: GENERAL: Chronically ill-appearing, elderly man who is in no distress. HEENT: Head atraumatic, normocephalic. Sclerae anicteric. Buccal mucosa dry. NECK: Supple. Tracheostomy present. CHEST: Rise symmetrical. Breath sounds diminished to bases with scattered rhonchi. HEART: S1, S2. ABDOMEN: Soft, bowel tones present. EXTREMITIES: Contractured. SKIN: With multiple chronic decubitus. ASSESSMENT: 1. Systemic inflammatory response syndrome with some ongoing leukocytosis. 2. Healthcare-associated pneumonia. 3. Fungal urinary tract infection. 4. Chronic respiratory failure. 5. Dysphagia, status post GJ tube malfunction. 6. Anemia. 7. History of cerebrovascular accident. PLAN: The patient remains stable. WBC trending down, continue antibiotics for 5-7 more days. Continue local wound care, GI recommendations noted Problems: Consultation Date/Type/Reason Admit Date/Time Jun 08, 2017 at 12:13 Initial Consult Date Type of Consultation: ID Exam/Review of Systems Vital Signs Vitals Vital Signs Date Time Temp Pulse Resp B/P Pulse Ox O2 Delivery O2 Flow Rate FiO2 06/12/17 12:54 68 23 100 30 06/12/17 12:38 99.3 119/58 Intake and Output 06/11/17 06/11/17 06/12/17 15:00 23:00 07:00 Intake Total 1070 ml 1270 ml 100 ml Output Total 1250 ml 800 ml Balance -180 ml 470 ml 100 ml Results Result Diagram: 06/12/17 0716 06/12/17 0716 Results 24 hrs Laboratory Tests Test 06/12/17 07:14 06/12/17 07:16 06/12/17 10:55 Lab Scanned Report BLOOD TRANSFUSION White Blood Count 12.6 H Red Blood Count 2.53 L Hemoglobin 7.1 L Hematocrit 23.0 L Mean Corpuscular Volume 90.9 Mean Corpuscular Hemoglobin 28.1 L Mean Corpuscular Hemoglobin Concent 30.9 L Red Cell Distribution Width 17.3 H Platelet Count 277 Mean Platelet Volume 10.0 Neutrophils % 87.4 H Lymphocytes % 5.8 L Monocytes % 3.1 Eosinophils % 2.6 Basophils % 0.1 Nucleated Red Blood Cells % 0.0 Neutrophils # 11.0 H Lymphocytes # 0.7 L Monocytes # 0.4 Eosinophils # 0.3 Basophils # 0.0 Nucleated Red Blood Cells # 0.0 Sodium Level 141 Potassium Level 4.5 Chloride Level 110 Carbon Dioxide Level 25 Anion Gap 11 Blood Urea Nitrogen 33 H Creatinine 1.13 Glucose Level 117 Calcium Level 7.8 L Phosphorus Level 3.4 Magnesium Level 2.1 Vancomycin Level Trough 11.6 Medications Medications Current Medications Docusate Sodium (Colace) 100 mg BID PRN PO constipation; Start 06/06/17 at 16: 30 Metoprolol Tartrate (Lopressor) 25 mg BID GTB Last administered on 06/12/17 08:55; Admin Dose 25 MG; Start 06/06/17 at 21:00 Tamsulosin HCl (Flomax) 0.4 mg HS PO Last administered on 06/11/17 21:22; Admin Dose 0.4 MG; Start 06/06/17 at 21:00 Ondansetron HCl (Zofran Inj) 4 mg Q6H PRN IV NAUSEA AND/OR VOMITING; Start at 16:30 Acetaminophen (Tylenol Tab) 650 mg Q6H PRN GTB PAIN LEVEL 1-3 OR FEVER; Start 06/06/17 at 16:30 Magnesium Hydroxide (Milk Of Mag) 30 ml DAILY PRN GTB CONSTIPATION; Start at 16:30 Enoxaparin Sodium (Lovenox) 40 mg DAILY SC ; Start 06/07/17 at 09:00; Status Future Hold Miscellaneous Information (Pending Santyl Order For Wound Care) This patient felipe... PRN PRN XX WOUND CARE; Start 06/06/17 at 23:00 Collagenase (Santyl) 1 applic DAILY TOP Last administered on 06/11/17 09:00; Admin Dose 1 APPLIC; Start 06/07/17 at 09:00 Sodium Hypochlorite 1 applic 1 applic BID IRR Last administered on 06/11/17 21:22; Admin Dose 1 APPLIC; Start 06/07/17 at 14:00 Sodium Chloride 1,000 ml @ 50 mls/hr Q20H IV Last administered on 06/12/17 11:03; Admin Dose 50 MLS/HR; Start 06/08/17 at 11:00 Vancomycin HCl 100 ml @ 100 mls/hr Q36H IVPB Last administered on 06/12/17 11:04; Admin Dose 100 MLS/HR; Start 06/09/17 at 12:00 Piperacillin Sod/ Tazobactam Sod (Zosyn 2.25gm/ 50ml (Pmx)) 50 ml @ 100 mls/hr Q6 IVPB Last administered on 06/12/17 11:09; Admin Dose 100 MLS/HR; Start at 13:31 Ascorbic Acid (Vitamin C) 500 mg BID GTB Last administered on 06/12/17 08:54 ; Admin Dose 500 MG; Start 06/10/17 at 21:00 Ferrous Sulfate (Feosol Liquid Cup) 300 mg DAILY GTB Last administered on 06/12 08:55; Admin Dose 300 MG; Start 06/11/17 at 09:00 Fluconazole (Diflucan) 100 mg DAILY PO Last administered on 06/12/17 08:54; Admin Dose 100 MG; Start 06/11/17 at 15:00 Lansoprazole (Prevacid) 30 mg DAILY GTB Last administered on 06/12/17 08:54; Admin Dose 30 MG; Start 06/12/17 at 09:00 RAFY VELAZQUEZ NP Jun 12, 2017 14:55
--- NOTE | 2017-06-12 15:49 | PN ---
Date/Time of Note Date/Time of Note DATE: 06/12/17 TIME: 15:49 Assessment/Plan VTE Prophylaxis VTE Prophylaxis Intervention: SCD's Lines/Catheters IV Catheter Type (from Nrsg): Peripheral IV Urinary Cath still in place: Yes Reason Cath still needed: terminal illness/intractable pain Assessment/Plan Chief Complaint/Hosp Course s: more awake today o: Constitutional: alert, thin, No distress ENMT: trach in place, no dentition Neck: non-tender, supple Respiratory: corase to auscultation, diminished breath sounds bilaterally, No wheezing Cardiovascular: nl pulses, regular rate and rhythm, No murmurs/extra sounds, No systolic murmur Gastrointestinal: non-tender, J tube site clean and dry with no discharge, erythema, or drainage, soft, No distended, No rebound or guarding Musculoskeletal: contracted lower and upper extremities Extremities: No cyanosis, No edema Assessment/Plan #anemia -likely anemia of chronic disease/iron deficiency -no signs of bleed per GI -starting iron replacement, ordered ferritin #. J tube malfunction - Patient sent from [facility] for replacement of Jtube - Dr. Danielson called by ED and replaced Jtube -working well -back on tube feeds #PNA -seen on chest xray -ID recs appreciated -broad spectrum abx #leukocytosis -on vanco for ESBL UTI from prior hospitalization -added zosyn -blood cultures and UA pending -downtrended #hematuria -mild, likely cause of low hgb -stable #REJI -very mild increase -monitor, increase fluids -consult nephro if no resolution #. Chronic respiratory failure with trach on vent - continue current settings - Pulmonology consulted and appreciated recommendations. Continue on vent support with bronchodilators #. ESBL UTI - treatment course done #. Hyponatremia- improved #. Hemiplegia - Per Records, patient gets out of bed to [facility] [place], however doubtful - contraction of lower extremities and upper extremities #. HTN - continue current medications - stable #. Dementia #. CVA - hold aspirin for now due to ?bleed #. Disposition - J tube replaced - workup for PNA pending -finalize abx per ID and then DC back to SNF Problems: Exam/Review of Systems Vital Signs Vitals Vital Signs Date Time Temp Pulse Resp B/P Pulse Ox O2 Delivery O2 Flow Rate FiO2 06/12/17 15:33 66 25 100 30 06/12/17 12:38 99.3 119/58 Intake and Output 06/11/17 06/11/17 06/12/17 15:00 23:00 07:00 Intake Total 1070 ml 1270 ml 100 ml Output Total 1250 ml 800 ml Balance -180 ml 470 ml 100 ml Results Result Diagram: 06/12/17 0716 06/12/17 0716 Results 24 hrs Laboratory Tests Test 06/12/17 07:14 06/12/17 07:16 06/12/17 10:55 Lab Scanned Report BLOOD TRANSFUSION White Blood Count 12.6 H Red Blood Count 2.53 L Hemoglobin 7.1 L Hematocrit 23.0 L Mean Corpuscular Volume 90.9 Mean Corpuscular Hemoglobin 28.1 L Mean Corpuscular Hemoglobin Concent 30.9 L Red Cell Distribution Width 17.3 H Platelet Count 277 Mean Platelet Volume 10.0 Neutrophils % 87.4 H Lymphocytes % 5.8 L Monocytes % 3.1 Eosinophils % 2.6 Basophils % 0.1 Nucleated Red Blood Cells % 0.0 Neutrophils # 11.0 H Lymphocytes # 0.7 L Monocytes # 0.4 Eosinophils # 0.3 Basophils # 0.0 Nucleated Red Blood Cells # 0.0 Sodium Level 141 Potassium Level 4.5 Chloride Level 110 Carbon Dioxide Level 25 Anion Gap 11 Blood Urea Nitrogen 33 H Creatinine 1.13 Glucose Level 117 Calcium Level 7.8 L Phosphorus Level 3.4 Magnesium Level 2.1 Vancomycin Level Trough 11.6 Medications Medications Current Medications Docusate Sodium (Colace) 100 mg BID PRN PO constipation; Start 06/06/17 at 16: 30 Metoprolol Tartrate (Lopressor) 25 mg BID GTB Last administered on 06/12/17t 08:55; Admin Dose 25 MG; Start 06/06/17 at 21:00 Tamsulosin HCl (Flomax) 0.4 mg HS PO Last administered on 06/11/17 21:22; Admin Dose 0.4 MG; Start 06/06/17 at 21:00 Ondansetron HCl (Zofran Inj) 4 mg Q6H PRN IV NAUSEA AND/OR VOMITING; Start at 16:30 Acetaminophen (Tylenol Tab) 650 mg Q6H PRN GTB PAIN LEVEL 1-3 OR FEVER; Start 06/06/17 at 16:30 Magnesium Hydroxide (Milk Of Mag) 30 ml DAILY PRN GTB CONSTIPATION; Start at 16:30 Enoxaparin Sodium (Lovenox) 40 mg DAILY SC ; Start 06/07/17 at 09:00; Status Future Hold Miscellaneous Information (Pending Santyl Order For Wound Care) This patient felipe... PRN PRN XX WOUND CARE; Start 06/06/17 at 23:00 Collagenase (Santyl) 1 applic DAILY TOP Last administered on 06/11/17 09:00; Admin Dose 1 APPLIC; Start 06/07/17 at 09:00 Sodium Hypochlorite 1 applic 1 applic BID IRR Last administered on 06/11/17 21:22; Admin Dose 1 APPLIC; Start 06/07/17 at 14:00 Sodium Chloride 1,000 ml @ 50 mls/hr Q20H IV Last administered on 06/12/17 11:03; Admin Dose 50 MLS/HR; Start 06/08/17 at 11:00 Vancomycin HCl 100 ml @ 100 mls/hr Q36H IVPB Last administered on 06/11/17 00:24; Admin Dose 100 MLS/HR; Start 06/09/17 at 12:00 Piperacillin Sod/ Tazobactam Sod (Zosyn 2.25gm/ 50ml (Pmx)) 50 ml @ 100 mls/hr Q6 IVPB Last administered on 06/12/17 11:09; Admin Dose 100 MLS/HR; Start at 13:31 Ascorbic Acid (Vitamin C) 500 mg BID GTB Last administered on 06/12/17 08:54 ; Admin Dose 500 MG; Start 06/10/17 at 21:00 Ferrous Sulfate (Feosol Liquid Cup) 300 mg DAILY GTB Last administered on 06/12 08:55; Admin Dose 300 MG; Start 06/11/17 at 09:00 Fluconazole (Diflucan) 100 mg DAILY PO Last administered on 06/12/17 08:54; Admin Dose 100 MG; Start 06/11/17 at 15:00 Lansoprazole (Prevacid) 30 mg DAILY GTB Last administered on 06/12/17 08:54; Admin Dose 30 MG; Start 06/12/17 at 09:00 JULIANNA WALDEN Jun 12, 2017 15:49
--- NOTE | 2017-06-12 19:26 | CONS ---
Date/Time of Note Date/Time of Note DATE: 06/12/17 TIME: 19:24 Assessment/Plan Assessment/Plan Additional Assessment/Plan IMPRESSION: 1. Leukocytosis. Better 2. Aspiration pneumonia. 3. Status post G-J tube. Tolerating feeding well 4. Vent-dependent respiratory failure. 5. Cerebrovascular accident. 6. Anemia. Stool for occult blood was negative. This is anemia of chronic disease. 7. Urinary tract infection. 8. Anemia of chronic disease no evidence of active GI bleeding PLAN: To continue feeding. We will monitor H and H and complete the course of antibiotics. Back to [facility] once stable Consultation Date/Type/Reason Admit Date/Time Jun 08, 2017 at 12:13 Type of Consultation: ID [id number] HR Interval Summary Constitutional: improved, no complaints Exam/Review of Systems Vital Signs Vitals Vital Signs Date Time Temp Pulse Resp B/P Pulse Ox O2 Delivery O2 Flow Rate FiO2 06/12/17 17:36 70 25 98 30 06/12/17 15:51 98.5 147/68 Intake and Output 06/11/17 06/11/17 06/12/17 15:00 23:00 07:00 Intake Total 1070 ml 1270 ml 100 ml Output Total 1250 ml 800 ml Balance -180 ml 470 ml 100 ml Exam Constitutional: alert, oriented, well developed Psych: nl mood/affect, no complaints Head: atraumatic, normocephalic Eyes: EOMI, PERRL, nl conjunctiva, nl lids, nl sclera ENMT: nl external ears & nose, nl lips & teeth, nl nasal mucosa & septum Neck: non-tender, supple Respiratory: clear to auscultation, normal air movement Cardiovascular: nl pulses, regular rate and rhythm Gastrointestinal: nl liver, spleen, non-tender, soft Musculoskeletal: nl extremities to inspection, nl gait and stance Extremities: normal pulses Neurological: SOLE SEWER HAND II-XII intact, nl mental status, nl speech, nl strength Skin: nl turgor, No rash or lesions Lymph: nl lymph nodes Results Result Diagram: 06/12/17 0716 06/12/17 0716 Results 24 hrs Laboratory Tests Test 06/12/17 07:14 06/12/17 07:16 06/12/17 10:55 Lab Scanned Report BLOOD TRANSFUSION White Blood Count 12.6 H Red Blood Count 2.53 L Hemoglobin 7.1 L Hematocrit 23.0 L Mean Corpuscular Volume 90.9 Mean Corpuscular Hemoglobin 28.1 L Mean Corpuscular Hemoglobin Concent 30.9 L Red Cell Distribution Width 17.3 H Platelet Count 277 Mean Platelet Volume 10.0 Neutrophils % 87.4 H Lymphocytes % 5.8 L Monocytes % 3.1 Eosinophils % 2.6 Basophils % 0.1 Nucleated Red Blood Cells % 0.0 Neutrophils # 11.0 H Lymphocytes # 0.7 L Monocytes # 0.4 Eosinophils # 0.3 Basophils # 0.0 Nucleated Red Blood Cells # 0.0 Sodium Level 141 Potassium Level 4.5 Chloride Level 110 Carbon Dioxide Level 25 Anion Gap 11 Blood Urea Nitrogen 33 H Creatinine 1.13 Glucose Level 117 Calcium Level 7.8 L Phosphorus Level 3.4 Magnesium Level 2.1 Vancomycin Level Trough 11.6 Medications Medications Current Medications Docusate Sodium (Colace) 100 mg BID PRN PO constipation; Start 06/06/17 at 16: 30 Metoprolol Tartrate (Lopressor) 25 mg BID GTB Last administered on 06/12/17 08:55; Admin Dose 25 MG; Start 06/06/17 at 21:00 Tamsulosin HCl (Flomax) 0.4 mg HS PO Last administered on 06/11/17 21:22; Admin Dose 0.4 MG; Start 06/06/17 at 21:00 Ondansetron HCl (Zofran Inj) 4 mg Q6H PRN IV NAUSEA AND/OR VOMITING; Start at 16:30 Acetaminophen (Tylenol Tab) 650 mg Q6H PRN GTB PAIN LEVEL 1-3 OR FEVER; Start 06/06/17 at 16:30 Magnesium Hydroxide (Milk Of Mag) 30 ml DAILY PRN GTB CONSTIPATION; Start at 16:30 Enoxaparin Sodium (Lovenox) 40 mg DAILY SC ; Start 06/07/17 at 09:00; Status Future Hold Miscellaneous Information (Pending Santyl Order For Wound Care) This patient felipe... PRN PRN XX WOUND CARE; Start 06/06/17 at 23:00 Collagenase (Santyl) 1 applic DAILY TOP Last administered on 06/11/17 09:00; Admin Dose 1 APPLIC; Start 06/07/17 at 09:00 Sodium Hypochlorite 1 applic 1 applic BID IRR Last administered on 06/11/17 21:22; Admin Dose 1 APPLIC; Start 06/07/17 at 14:00 Sodium Chloride 1,000 ml @ 50 mls/hr Q20H IV Last administered on 06/12/17 11:03; Admin Dose 50 MLS/HR; Start 06/08/17 at 11:00 Vancomycin HCl 100 ml @ 100 mls/hr Q36H IVPB Last administered on 06/11/17 00:24; Admin Dose 100 MLS/HR; Start 06/09/17 at 12:00 Piperacillin Sod/ Tazobactam Sod (Zosyn 2.25gm/ 50ml (Pmx)) 50 ml @ 100 mls/hr Q6 IVPB Last administered on 06/12/17 17:08; Admin Dose 100 MLS/HR; Start at 13:31 Ascorbic Acid (Vitamin C) 500 mg BID GTB Last administered on 06/12/17 08:54 ; Admin Dose 500 MG; Start 06/10/17 at 21:00 Ferrous Sulfate (Feosol Liquid Cup) 300 mg DAILY GTB Last administered on 06/12 08:55; Admin Dose 300 MG; Start 06/11/17 at 09:00 Fluconazole (Diflucan) 100 mg DAILY PO Last administered on 06/12/17 08:54; Admin Dose 100 MG; Start 06/11/17 at 15:00 Lansoprazole (Prevacid) 30 mg DAILY GTB Last administered on 06/12/17 08:54; Admin Dose 30 MG; Start 06/12/17 at 09:00 ELIZABETH AVILA MD Jun 12, 2017 19:26
[2017-06-12] MEDS: TAMSULOSIN (SR) 0.4 MG CAP PO SCH (22:14)
[2017-06-13] VITALS (24 sets, daily range): BP systolic 125–173; BP diastolic 60–80; PULSE 71–83; RESP 19–28
[2017-06-13] MEDS: PIPER-TAZO 2.25 GM (PMX) 50 ML IVPB SCH ×5 (00:53→23:37)
[2017-06-13] MEDS: SOD CHLORIDE 0.45% 1,000 ML IV SCH (05:33)
[2017-06-13] MEDS: IPRATROPIUM (HFA) 12.9 GM INHALER INH SCH ×3 (07:28→20:38)
[2017-06-13] MEDS: ALBUTEROL HFA 8 GM INHALER INH SCH ×3 (07:29→20:38)
[2017-06-13] MEDS: COLLAGENASE 30 GM TUBE TOP SCH (09:00)
[2017-06-13] MEDS: FERROUS SULFATE 60 MG/ML 5ML CUP GTB SCH (09:57)
[2017-06-13] MEDS: METOPROLOL 25 MG TAB GTB SCH ×2 (09:57→21:48)
[2017-06-13] MEDS: FLUCONAZOLE 100 MG TAB PO SCH (09:58)
[2017-06-13] MEDS: ASCORBIC ACID 500 MG TAB GTB SCH ×2 (09:58→21:48)
[2017-06-13] MEDS: LANSOPRAZOLE 30 MG CAP GTB SCH (09:58)
[2017-06-13] MEDS: SODIUM HYPOCHLORITE 0.125% 473 ML BTL IRR SCH ×2 (10:01→21:49)
--- NOTE | 2017-06-13 11:12 | CONS ---
Date/Time of Note Date/Time of Note DATE: 06/13/17 TIME: 11:11 Consult Date/Type/Reason Admit Date/Time Jun 08, 2017 at 12:13 Initial Consult Date Type of Consultation: Pulmonary Subjective Patient comfortable no new events. Objective Vital Signs Date Time Temp Pulse Resp B/P Pulse Ox O2 Delivery O2 Flow Rate FiO2 06/13/17 09:05 76 20 97 30 06/13/17 07:46 99.6 146/71 Intake and Output 06/12/17 06/12/17 06/13/17 14:59 22:59 06:59 Intake Total 1130 ml 1880 ml 1050 ml Output Total 1000 ml 750 ml 1500 ml Balance 130 ml 1130 ml -450 ml Exam PHYSICAL EXAMINATION: GENERAL: A chronically ill-appearing gentleman, appears comfortable at rest. VITAL SIGNS: NECK: Supple. No JVD or lymphadenopathy. CARDIAC: S1, S2, no added sounds or murmurs. CHEST: Diminished air entry bilaterally. ABDOMEN: Soft, nontender. No guarding or rebound. EXTREMITIES: No cyanosis, clubbing, edema. NEUROLOGIC: Generalized weakness. Results/Medications Result Diagram: 06/12/1771506/12/17715 Medications Current Medications Docusate Sodium (Colace) 100 mg BID PRN PO constipation; Start 06/06/17 at 16: 30 Metoprolol Tartrate (Lopressor) 25 mg BID GTB Last administered on 06/13/17 09:57; Admin Dose 25 MG; Start 06/06/17 at 21:00 Tamsulosin HCl (Flomax) 0.4 mg HS PO Last administered on 06/12/17 22:14; Admin Dose 0.4 MG; Start 06/06/17 at 21:00 Ondansetron HCl (Zofran Inj) 4 mg Q6H PRN IV NAUSEA AND/OR VOMITING; Start at 16:30 Acetaminophen (Tylenol Tab) 650 mg Q6H PRN GTB PAIN LEVEL 1-3 OR FEVER; Start 06/06/17 at 16:30 Magnesium Hydroxide (Milk Of Mag) 30 ml DAILY PRN GTB CONSTIPATION; Start at 16:30 Enoxaparin Sodium (Lovenox) 40 mg DAILY SC ; Start 06/07/17 at 09:00; Status Future Hold Miscellaneous Information (Pending Santyl Order For Wound Care) This patient felipe... PRN PRN XX WOUND CARE; Start 06/06/17 at 23:00 Collagenase (Santyl) 1 applic DAILY TOP Last administered on 06/13/17 09:00; Admin Dose 1 APPLIC; Start 06/07/17 at 09:00 Sodium Hypochlorite 1 applic 1 applic BID IRR Last administered on 06/13/17 10:01; Admin Dose 1 APPLIC; Start 06/07/17 at 14:00 Sodium Chloride 1,000 ml @ 50 mls/hr Q20H IV Last administered on 06/13/17 05:33; Admin Dose 50 MLS/HR; Start 06/08/17 at 11:00 Vancomycin HCl 100 ml @ 100 mls/hr Q36H IVPB Last administered on 06/11/17 00:24; Admin Dose 100 MLS/HR; Start 06/09/17 at 12:00 Piperacillin Sod/ Tazobactam Sod (Zosyn 2.25gm/ 50ml (Pmx)) 50 ml @ 100 mls/hr Q6 IVPB Last administered on 06/13/17 05:33; Admin Dose 100 MLS/HR; Start at 13:31 Ascorbic Acid (Vitamin C) 500 mg BID GTB Last administered on 06/13/17 09:58 ; Admin Dose 500 MG; Start 06/10/17 at 21:00 Ferrous Sulfate (Feosol Liquid Cup) 300 mg DAILY GTB Last administered on 06/13 09:57; Admin Dose 300 MG; Start 06/11/17 at 09:00 Fluconazole (Diflucan) 100 mg DAILY PO Last administered on 06/13/17 09:58; Admin Dose 100 MG; Start 06/11/17 at 15:00 Lansoprazole (Prevacid) 30 mg DAILY GTB Last administered on 06/13/17 09:58; Admin Dose 30 MG; Start 06/12/17 at 09:00 Assessment/Plan Chief Complaint/Hosp Course IMPRESSION AND PLAN: 1. G-tube malfunction. Status post replacement. 2. Vent dependent respiratory failure. 3. Chronic anemia, GI recommendations appreciated 4. History of encephalopathy. 5. History of cerebrovascular accident. PLAN: 1. Continue vent support. 2. Monitor H and H diffuse 1 unit packed red blood cells 3. Continue tube feeding per GI. 4. Bronchiolitis. 5. DVT and GI prophylaxis. Transfer back to custodial facility after RBC transfusion. Problems: MUNIRA ROACH MD, [facility] Jun 13, 2017 11:12
--- NOTE | 2017-06-13 12:15 | PN ---
Date/Time of Note Date/Time of Note DATE: 06/13/17 TIME: 12:14 Assessment/Plan VTE Prophylaxis VTE Prophylaxis Intervention: SCD's Lines/Catheters IV Catheter Type (from Nrs): Peripheral IV Urinary Cath still in place: Yes Reason Cath still needed: urinary retention Assessment/Plan Chief Complaint/Hosp Course s: 06.12: more awake today 06.13: easily aroused, no acute events o: Constitutional: alert, thin, No distress ENMT: trach in place, no dentition Neck: non-tender, supple Respiratory: corase to auscultation, diminished breath sounds bilaterally, No wheezing Cardiovascular: nl pulses, regular rate and rhythm, No murmurs/extra sounds, No systolic murmur Gastrointestinal: non-tender, J tube site clean and dry with no discharge, erythema, or drainage, soft, No distended, No rebound or guarding Musculoskeletal: contracted lower and upper extremities Extremities: No cyanosis, No edema Assessment/Plan #anemia -likely anemia of chronic disease/iron deficiency -no signs of bleed per GI -starting iron replacement, #. J tube malfunction - Patient sent from [facility] for replacement of Jtube - Dr. Danielson called by ED and replaced Jtube -working well -back on tube feeds #PNA -seen on chest xray -ID recs appreciated -broad spectrum abx #leukocytosis -on vanco for ESBL UTI from prior hospitalization -added zosyn -blood cultures and UA pending -downtrended #hematuria -mild, likely cause of low hgb -stable #REJI -very mild increase -monitor, increase fluids -consult nephro if no resolution #. Chronic respiratory failure with trach on vent - continue current settings - Pulmonology consulted and appreciated recommendations. Continue on vent support with bronchodilators #. ESBL UTI - treatment course done #. Hyponatremia- improved #. Hemiplegia - Per Records, [facility], however doubtful - contraction of lower extremities and upper extremities #. HTN - continue current medications - stable #. Dementia #. CVA - hold aspirin for now due to ?bleed #. Disposition - J tube replaced - 1 unit prbc ordered -finalize abx per ID and then DC back to SNF, likely tomorrow Problems: Exam/Review of Systems Vital Signs Vitals Vital Signs Date Time Temp Pulse Resp B/P Pulse Ox O2 Delivery O2 Flow Rate FiO2 06/13/17 11:52 99.0 74 24 134/71 98 06/13/17 11:05 30 Intake and Output 06/12/17 06/12/17 06/13/17 15:00 23:00 07:00 Intake Total 1130 ml 1880 ml 1050 ml Output Total 1000 ml 750 ml 1500 ml Balance 130 ml 1130 ml -450 ml Results Result Diagram: 06/12/17 0716 06/12/17 0716 Medications Medications Current Medications Docusate Sodium (Colace) 100 mg BID PRN PO constipation; Start 06/06/17 at 16: 30 Metoprolol Tartrate (Lopressor) 25 mg BID GTB Last administered on 06/13/17 09:57; Admin Dose 25 MG; Start 06/06/17 at 21:00 Tamsulosin HCl (Flomax) 0.4 mg HS PO Last administered on 06/12/17 22:14; Admin Dose 0.4 MG; Start 06/06/17 at 21:00 Ondansetron HCl (Zofran Inj) 4 mg Q6H PRN IV NAUSEA AND/OR VOMITING; Start at 16:30 Acetaminophen (Tylenol Tab) 650 mg Q6H PRN GTB PAIN LEVEL 1-3 OR FEVER; Start 06/06/17 at 16:30 Magnesium Hydroxide (Milk Of Mag) 30 ml DAILY PRN GTB CONSTIPATION; Start at 16:30 Enoxaparin Sodium (Lovenox) 40 mg DAILY SC ; Start 06/07/17 at 09:00; Status Future Hold Miscellaneous Information (Pending Santyl Order For Wound Care) This patient felipe... PRN PRN XX WOUND CARE; Start 06/06/17 at 23:00 Collagenase (Santyl) 1 applic DAILY TOP Last administered on 06/13/17 09:00; Admin Dose 1 APPLIC; Start 06/07/17 at 09:00 Sodium Hypochlorite 1 applic 1 applic BID IRR Last administered on 06/13/17 10:01; Admin Dose 1 APPLIC; Start 06/07/17 at 14:00 Sodium Chloride 1,000 ml @ 50 mls/hr Q20H IV Last administered on 06/13/17 05:33; Admin Dose 50 MLS/HR; Start 06/08/17 at 11:00 Vancomycin HCl 100 ml @ 100 mls/hr Q36H IVPB Last administered on 06/11/17 00:24; Admin Dose 100 MLS/HR; Start 06/09/17 at 12:00 Piperacillin Sod/ Tazobactam Sod (Zosyn 2.25gm/ 50ml (Pmx)) 50 ml @ 100 mls/hr Q6 IVPB Last administered on 06/13/17 05:33; Admin Dose 100 MLS/HR; Start at 13:31 Ascorbic Acid (Vitamin C) 500 mg BID GTB Last administered on 06/13/17 09:58 ; Admin Dose 500 MG; Start 06/10/17 at 21:00 Ferrous Sulfate (Feosol Liquid Cup) 300 mg DAILY GTB Last administered on 06/13 09:57; Admin Dose 300 MG; Start 06/11/17 at 09:00 Fluconazole (Diflucan) 100 mg DAILY PO Last administered on 06/13/17 09:58; Admin Dose 100 MG; Start 06/11/17 at 15:00 Lansoprazole (Prevacid) 30 mg DAILY GTB Last administered on 06/13/17 09:58; Admin Dose 30 MG; Start 06/12/17 at 09:00 JULIANNA WALDEN Jun 13, 2017 12:15
--- NOTE | 2017-06-13 12:17 | CONS ---
Date/Time of Note Date/Time of Note DATE: 06/13/17 TIME: 12:16 Assessment/Plan Assessment/Plan Chief Complaint/Hosp Course SUBJECTIVE: No acute changes overnight, the patient is lying comfortably in bed. No fevers. MICROBIOLOGY: Blood cultures negative. Urine culture growing Nora glabrata ANTIMICROBIALS: The patient is on: 1. Zosyn. 2. Vancomycin. 3. Fluconazole INDWELLINGS: Trach, PEG, Briones. DIAGNOSTICS: Chest x-ray from yesterday revealed left middle and lower lung zone pneumonia. PHYSICAL EXAMINATION: GENERAL: Chronically ill-appearing, elderly man who is in no distress. HEENT: Head atraumatic, normocephalic. Sclerae anicteric. Buccal mucosa dry. NECK: Supple. Tracheostomy present. CHEST: Rise symmetrical. Breath sounds diminished to bases with scattered rhonchi. HEART: S1, S2. ABDOMEN: Soft, bowel tones present. EXTREMITIES: Contractured. SKIN: With multiple chronic decubitus. ASSESSMENT: 1. Systemic inflammatory response syndrome with ongoing leukocytosis. 2. Healthcare-associated pneumonia. 3. Fungal urinary tract infection. 4. Chronic respiratory failure. 5. Dysphagia, status post GJ tube malfunction. 6. Anemia. 7. History of cerebrovascular accident. PLAN: The patient remains stable. WBC trending down, continue antibiotics for 5 more days. Continue local wound care, follow recommendations of specialists Problems: Consultation Date/Type/Reason Admit Date/Time Jun 08, 2017 at 12:13 Type of Consultation: ID Exam/Review of Systems Vital Signs Vitals Vital Signs Date Time Temp Pulse Resp B/P Pulse Ox O2 Delivery O2 Flow Rate FiO2 06/13/17 11:52 99.0 74 24 134/71 98 06/13/17 11:05 30 Intake and Output 06/12/17 06/12/17 06/13/17 15:00 23:00 07:00 Intake Total 1130 ml 1880 ml 1050 ml Output Total 1000 ml 750 ml 1500 ml Balance 130 ml 1130 ml -450 ml Results Result Diagram: 06/12/17 0716 06/12/17 0716 Medications Medications Current Medications Docusate Sodium (Colace) 100 mg BID PRN PO constipation; Start 06/06/17 at 16: 30 Metoprolol Tartrate (Lopressor) 25 mg BID GTB Last administered on 06/13/17t 09:57; Admin Dose 25 MG; Start 06/06/17 at 21:00 Tamsulosin HCl (Flomax) 0.4 mg HS PO Last administered on 06/12/17 22:14; Admin Dose 0.4 MG; Start 06/06/17 at 21:00 Ondansetron HCl (Zofran Inj) 4 mg Q6H PRN IV NAUSEA AND/OR VOMITING; Start at 16:30 Acetaminophen (Tylenol Tab) 650 mg Q6H PRN GTB PAIN LEVEL 1-3 OR FEVER; Start 06/06/17 at 16:30 Magnesium Hydroxide (Milk Of Mag) 30 ml DAILY PRN GTB CONSTIPATION; Start at 16:30 Enoxaparin Sodium (Lovenox) 40 mg DAILY SC ; Start 06/07/17 at 09:00; Status Future Hold Miscellaneous Information (Pending Santyl Order For Wound Care) This patient felipe... PRN PRN XX WOUND CARE; Start 06/06/17 at 23:00 Collagenase (Santyl) 1 applic DAILY TOP Last administered on 06/13/17 09:00; Admin Dose 1 APPLIC; Start 06/07/17 at 09:00 Sodium Hypochlorite 1 applic 1 applic BID IRR Last administered on 06/13/17 10:01; Admin Dose 1 APPLIC; Start 06/07/17 at 14:00 Sodium Chloride 1,000 ml @ 50 mls/hr Q20H IV Last administered on 06/13/17 05:33; Admin Dose 50 MLS/HR; Start 06/08/17 at 11:00 Vancomycin HCl 100 ml @ 100 mls/hr Q36H IVPB Last administered on 06/11/17 00:24; Admin Dose 100 MLS/HR; Start 06/09/17 at 12:00 Piperacillin Sod/ Tazobactam Sod (Zosyn 2.25gm/ 50ml (Pmx)) 50 ml @ 100 mls/hr Q6 IVPB Last administered on 06/13/17 05:33; Admin Dose 100 MLS/HR; Start at 13:31 Ascorbic Acid (Vitamin C) 500 mg BID GTB Last administered on 06/13/17 09:58 ; Admin Dose 500 MG; Start 06/10/17 at 21:00 Ferrous Sulfate (Feosol Liquid Cup) 300 mg DAILY GTB Last administered on 06/13 09:57; Admin Dose 300 MG; Start 06/11/17 at 09:00 Fluconazole (Diflucan) 100 mg DAILY PO Last administered on 06/13/17 09:58; Admin Dose 100 MG; Start 06/11/17 at 15:00 Lansoprazole (Prevacid) 30 mg DAILY GTB Last administered on 06/13/17 09:58; Admin Dose 30 MG; Start 06/12/17 at 09:00 RAFY VELAZQUEZ NP Jun 13, 2017 12:17
[2017-06-13] MEDS: TAMSULOSIN (SR) 0.4 MG CAP PO SCH (21:48)
[2017-06-14] VITALS (19 sets, daily range): BP systolic 123–159; BP diastolic 63–74; PULSE 65–76; RESP 18–25
[2017-06-14] MEDS: VANCOMYCIN 500MG/NS (PMX) 100 ML IVPB SCH (00:45)
[2017-06-14] MEDS: PIPER-TAZO 2.25 GM (PMX) 50 ML IVPB SCH (06:27)
[2017-06-14] MEDS: SOD CHLORIDE 0.45% 1,000 ML IV SCH (06:28)
[2017-06-14] MEDS: ALBUTEROL HFA 8 GM INHALER INH SCH ×2 (07:14→13:12)
[2017-06-14] MEDS: IPRATROPIUM (HFA) 12.9 GM INHALER INH SCH ×2 (07:14→13:11)
[2017-06-14 08:59] LABS: BASOPHILS % 0.2 % (0.0-2.0); EOSINOPHILS # 0.3 10^3/ul (0.0-0.5); HEMATOCRIT 27.2 % (42.0-52.0); LYMPHOCYTES # 0.8 10^3/ul (0.8-2.9); LYMPHOCYTES % 5.4 % (15.0-51.0); MEAN CORPUSCULAR HEMOGLOBIN 28.8 pg (29.0-33.0); MEAN CORPUSCULAR HGB CONC 33.1 g/dl (32.0-37.0); MEAN CORPUSCULAR VOLUME 86.9 fl (82.0-101.0); MEAN PLATELET VOLUME 10.7 fl (7.4-10.4); MONOCYTE # 0.7 10^3/ul (0.3-0.9); MONOCYTES % 4.6 % (0.0-11.0); NEUTROPHIL # 12.3 10^3/ul (1.6-7.5); NEUTROPHILS % 86.8 % (39.0-77.0); PLATELET COUNT 369 10^3/UL (140-415); RED BLOOD COUNT 3.13 10^6/ul (4.70-6.10); RED CELL DISTRIBUTION WIDTH 16.9 % (11.5-14.5); WHITE BLOOD COUNT 14.2 10^3/ul (4.8-10.8)
[2017-06-14] MEDS: FERROUS SULFATE 60 MG/ML 5ML CUP GTB SCH (09:10)
[2017-06-14] MEDS: FLUCONAZOLE 100 MG TAB PO SCH (09:10)
[2017-06-14] MEDS: LANSOPRAZOLE 30 MG CAP GTB SCH (09:10)
[2017-06-14] MEDS: METOPROLOL 25 MG TAB GTB SCH (09:11)
[2017-06-14] MEDS: ASCORBIC ACID 500 MG TAB GTB SCH (09:11)
[2017-06-14] MEDS: SODIUM HYPOCHLORITE 0.125% 473 ML BTL IRR SCH (09:11)
[2017-06-14] MEDS: COLLAGENASE 30 GM TUBE TOP SCH (09:12)
[2017-06-14 09:41] LABS: CALCIUM 7.5 mg/dl (8.4-10.2); CREATININE 1.03 mg/dl (0.61-1.24); MAGNESIUM 1.6 mg/dl (1.7-2.5); POTASSIUM 4.7 mmol/L (3.5-5.1)
--- NOTE | 2017-06-14 09:43 | CONS ---
Date/Time of Note Date/Time of Note DATE: 06/14/17 TIME: 09:42 Assessment/Plan Assessment/Plan Chief Complaint/Hosp Course ID PROGRESS NOTE CURRENT ABX: DAY # => Vanco IV #11 + Zosyn #8 + Fluconazole #3.5 24H INTERVAL SUMMARY * Afebrile, VSS, NAD * Eyes open, Noncommunicative on the Vent, moves all extremities * MICRO: 06/09 BCx(-); Urine (+)Glabrata PHYSICAL EXAMINATION: GENERAL: Cachectic 87 yo M, VSS, NAD, looks comfortable on the Vent HEENT: AT, NC, anicteric, moist oral membranes NECK: Tracheostomy tubing secure to patient and Vent CHEST: Equal chest rise bilaterally=> Vented HEART: Radial pulse RRR ABDOMEN: Soft, NT, peg : NL M EXT: Warm, moves all ext SKIN: No rash, no diaphoresis ID ASSESSMENT: 87 yo M admit with: 1. Systemic inflammatory response syndrome with ongoing leukocytosis & low grade temps 2/2 #2 & #3 2. Healthcare-associated pneumonia. * 06/10/17 CXR: . Left mid and lower lung zone pneumonia. 3. Fungal urinary tract infection URINE CULTURE Final Organism 1 GALE GLABRATA COLONY COUNT 50,000 - 60,000 CFU/ml 4. Chronic respiratory failure. 5. Dysphagia, status post GJ tube malfunction. 6. Anemia. 7. History of cerebrovascular accident. (-)MRSA ABX ALLERGY: NKDA INVASIVES: PIV CURRENT ABX:DAY # =>Vanco IV #11+ Zosyn #8 + Fluconazole #3.5 ID RECOMMENDATIONS/PLAN: 1. Change Diflucan to Cancidas to cover GLABRATA UTI 2. RN to make sure FC was changed after the 06/09/17 urine Cx (+)yeast as GLABRATA adheres to FC 3. Repeat CXR in am -- taper ABX per clinical response . Problems: Consultation Date/Type/Reason Admit Date/Time Jun 08, 2017 at 12:13 Initial Consult Date Type of Consultation: ID Exam/Review of Systems Vital Signs Vitals Vital Signs Date Time Temp Pulse Resp B/P Pulse Ox O2 Delivery O2 Flow Rate FiO2 06/14/17 08:51 74 06/14/17 07:48 98.0 18 159/70 98 06/14/17 07:10 30 Intake and Output 06/13/17 06/13/17 06/14/17 15:00 23:00 07:00 Intake Total 1050 ml Output Total 1950 ml Balance -900 ml Results Result Diagram: 06/14/17 0822 06/12/17 0716 Results 24 hrs Laboratory Tests Test 06/14/17 08:22 White Blood Count 14.2 H Red Blood Count 3.13 #L Hemoglobin 9.0 #L Hematocrit 27.2 L Mean Corpuscular Volume 86.9 Mean Corpuscular Hemoglobin 28.8 L Mean Corpuscular Hemoglobin Concent 33.1 Red Cell Distribution Width 16.9 H Platelet Count 369 # Mean Platelet Volume 10.7 H Neutrophils % 86.8 H Lymphocytes % 5.4 L Monocytes % 4.6 Eosinophils % 2.0 Basophils % 0.2 Nucleated Red Blood Cells % 0.0 Neutrophils # 12.3 H Lymphocytes # 0.8 Monocytes # 0.7 Eosinophils # 0.3 Basophils # 0.0 Nucleated Red Blood Cells # 0.0 Medications Medications Current Medications Docusate Sodium (Colace) 100 mg BID PRN PO constipation; Start 06/06/17 at 16: 30 Metoprolol Tartrate (Lopressor) 25 mg BID GTB Last administered on 06/14/17 09:11; Admin Dose 25 MG; Start 06/06/17 at 21:00 Tamsulosin HCl (Flomax) 0.4 mg HS PO Last administered on 06/13/17 21:48; Admin Dose 0.4 MG; Start 06/06/17 at 21:00 Ondansetron HCl (Zofran Inj) 4 mg Q6H PRN IV NAUSEA AND/OR VOMITING; Start at 16:30 Acetaminophen (Tylenol Tab) 650 mg Q6H PRN GTB PAIN LEVEL 1-3 OR FEVER; Start 06/06/17 at 16:30 Magnesium Hydroxide (Milk Of Mag) 30 ml DAILY PRN GTB CONSTIPATION; Start at 16:30 Enoxaparin Sodium (Lovenox) 40 mg DAILY SC ; Start 06/07/17 at 09:00; Status Future Hold Miscellaneous Information (Pending Santyl Order For Wound Care) This patient felipe... PRN PRN XX WOUND CARE; Start 06/06/17 at 23:00 Collagenase (Santyl) 1 applic DAILY TOP Last administered on 06/14/17 09:12; Admin Dose 1 APPLIC; Start 06/07/17 at 09:00 Sodium Hypochlorite 1 applic 1 applic BID IRR Last administered on 06/14/17 09:11; Admin Dose 1 APPLIC; Start 06/07/17 at 14:00 Sodium Chloride 1,000 ml @ 50 mls/hr Q20H IV Last administered on 06/14/17 06:28; Admin Dose 50 MLS/HR; Start 06/08/17 at 11:00 Vancomycin HCl 100 ml @ 100 mls/hr Q36H IVPB Last administered on 06/14/17 00:45; Admin Dose 100 MLS/HR; Start 06/09/17 at 12:00 Piperacillin Sod/ Tazobactam Sod (Zosyn 2.25gm/ 50ml (Pmx)) 50 ml @ 100 mls/hr Q6 IVPB Last administered on 06/14/17 06:27; Admin Dose 100 MLS/HR; Start at 13:31 Ascorbic Acid (Vitamin C) 500 mg BID GTB Last administered on 06/14/17 09:11 ; Admin Dose 500 MG; Start 06/10/17 at 21:00 Ferrous Sulfate (Feosol Liquid Cup) 300 mg DAILY GTB Last administered on 06/14 09:10; Admin Dose 300 MG; Start 06/11/17 at 09:00 Fluconazole (Diflucan) 100 mg DAILY PO Last administered on 06/14/17 09:10; Admin Dose 100 MG; Start 06/11/17 at 15:00 Lansoprazole (Prevacid) 30 mg DAILY GTB Last administered on 06/14/17 09:10; Admin Dose 30 MG; Start 06/12/17 at 09:00 CROW KEENAN NP Jun 14, 2017 09:43
--- NOTE | 2017-06-14 10:17 | CONS ---
Date/Time of Note Date/Time of Note DATE: 06/14/17 TIME: 10:16 Consult Date/Type/Reason Admit Date/Time Jun 08, 2017 at 12:13 Type of Consultation: Pulmonary Subjective Patient remains comfortable this morning. No new events. Status post transfusion 1 unit packed red blood cells. Objective Vital Signs Date Time Temp Pulse Resp B/P Pulse Ox O2 Delivery O2 Flow Rate FiO2 06/14/17 08:51 74 06/14/17 07:48 98.0 18 159/70 98 06/14/17 07:10 30 Intake and Output 06/13/17 06/13/17 06/14/17 15:00 23:00 07:00 Intake Total 1050 ml Output Total 1950 ml Balance -900 ml Exam PHYSICAL EXAMINATION: GENERAL: A chronically ill-appearing gentleman, appears comfortable at rest. VITAL SIGNS: NECK: Supple. No JVD or lymphadenopathy. CARDIAC: S1, S2, no added sounds or murmurs. CHEST: Diminished air entry bilaterally. ABDOMEN: Soft, nontender. No guarding or rebound. EXTREMITIES: No cyanosis, clubbing, edema. NEUROLOGIC: Generalized weakness. Results/Medications Result Diagram: 06/14/1782106/14/1722 Results 24 hrs Laboratory Tests Test 06/14/17 08:22 White Blood Count 14.2 H Red Blood Count 3.13 #L Hemoglobin 9.0 #L Hematocrit 27.2 L Mean Corpuscular Volume 86.9 Mean Corpuscular Hemoglobin 28.8 L Mean Corpuscular Hemoglobin Concent 33.1 Red Cell Distribution Width 16.9 H Platelet Count 369 # Mean Platelet Volume 10.7 H Neutrophils % 86.8 H Lymphocytes % 5.4 L Monocytes % 4.6 Eosinophils % 2.0 Basophils % 0.2 Nucleated Red Blood Cells % 0.0 Neutrophils # 12.3 H Lymphocytes # 0.8 Monocytes # 0.7 Eosinophils # 0.3 Basophils # 0.0 Nucleated Red Blood Cells # 0.0 Sodium Level 139 Potassium Level 4.7 Chloride Level 106 Carbon Dioxide Level 24 Anion Gap 14 Blood Urea Nitrogen 33 H Creatinine 1.03 Glucose Level 116 Calcium Level 7.5 L Phosphorus Level 4.0 Magnesium Level 1.6 L Medications Current Medications Docusate Sodium (Colace) 100 mg BID PRN PO constipation; Start 06/06/17 at 16: 30 Metoprolol Tartrate (Lopressor) 25 mg BID GTB Last administered on 06/14/17 09:11; Admin Dose 25 MG; Start 06/06/17 at 21:00 Tamsulosin HCl (Flomax) 0.4 mg HS PO Last administered on 06/13/17 21:48; Admin Dose 0.4 MG; Start 06/06/17 at 21:00 Ondansetron HCl (Zofran Inj) 4 mg Q6H PRN IV NAUSEA AND/OR VOMITING; Start at 16:30 Acetaminophen (Tylenol Tab) 650 mg Q6H PRN GTB PAIN LEVEL 1-3 OR FEVER; Start 06/06/17 at 16:30 Magnesium Hydroxide (Milk Of Mag) 30 ml DAILY PRN GTB CONSTIPATION; Start at 16:30 Enoxaparin Sodium (Lovenox) 40 mg DAILY SC ; Start 06/07/17 at 09:00; Status Future Hold Miscellaneous Information (Pending Santyl Order For Wound Care) This patient felipe... PRN PRN XX WOUND CARE; Start 06/06/17 at 23:00 Collagenase (Santyl) 1 applic DAILY TOP Last administered on 06/14/17 09:12; Admin Dose 1 APPLIC; Start 06/07/17 at 09:00 Sodium Hypochlorite 1 applic 1 applic BID IRR Last administered on 06/14/17 09:11; Admin Dose 1 APPLIC; Start 06/07/17 at 14:00 Sodium Chloride 1,000 ml @ 50 mls/hr Q20H IV Last administered on 06/14/17 06:28; Admin Dose 50 MLS/HR; Start 06/08/17 at 11:00 Vancomycin HCl 100 ml @ 100 mls/hr Q36H IVPB Last administered on 06/14/17 00:45; Admin Dose 100 MLS/HR; Start 06/09/17 at 12:00 Piperacillin Sod/ Tazobactam Sod (Zosyn 2.25gm/ 50ml (Pmx)) 50 ml @ 100 mls/hr Q6 IVPB Last administered on 06/14/17 06:27; Admin Dose 100 MLS/HR; Start at 13:31 Ascorbic Acid (Vitamin C) 500 mg BID GTB Last administered on 11/24/17at 09:11 ; Admin Dose 500 MG; Start 06/10/17 at 21:00 Ferrous Sulfate (Feosol Liquid Cup) 300 mg DAILY GTB Last administered on 06/14 09:10; Admin Dose 300 MG; Start 06/11/17 at 09:00 Fluconazole (Diflucan) 100 mg DAILY PO Last administered on 06/14/17 09:10; Admin Dose 100 MG; Start 06/11/17 at 15:00 Lansoprazole (Prevacid) 30 mg DAILY GTB Last administered on 06/14/17 09:10; Admin Dose 30 MG; Start 06/12/17 at 09:00 Assessment/Plan Chief Complaint/Hosp Course IMPRESSION AND PLAN: 1. G-tube malfunction. Status post replacement. 2. Vent dependent respiratory failure. 3. Chronic anemia, GI recommendations appreciated 4. History of encephalopathy. 5. History of cerebrovascular accident. PLAN: 1. Continue vent support. 2. Monitor H and H stable following transfusion 3. Continue tube feeding per GI. 4. Bronchiolitis. 5. DVT and GI prophylaxis. Transfer back to halfway facility, complete antibiotics. Problems: MUNIRA ROACH MD, [facility] Jun 14, 2017 10:17
[2017-06-14] MEDS ORDERED: MAGNESIUM SULFATE 2 GM/50 ML 50 ML IVPB ONE (11:00)
--- NOTE | 2017-06-14 12:13 | DS ---
Date/Time of Note Date/Time of Note DATE: 06/14/17 TIME: 12:13 Discharge Summary Admission/Discharge Info Admit Date/Time Jun 08, 2017 at 12:13 Discharge Date/Time Patient Condition: Stable Hospital Course Patient is a 86-year-old male with chronic respiratory failure on trach and G- tube with a history of CVA, hypertension, contractures, dementia, hemiplegia, Alzheimer's, GERD, anemia, COPD who was originally sent from nursing home facility for malfunctioning G-tube. Patient was also on vancomycin for UTI at facility and finished his antibiotic course while during this admission. Patient also was found to have pneumonia during this admission and was continued on antibiotics, broad-spectrum, vancomycin and Zosyn will need continued antibiotics for an additional 5 days. Patient was also found to have yeast in his urine and will need to continue fluconazole oral for approximately 6 more days. 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 Alzheimer's Hypertension History of CVA, on aspirin Home Meds Reported Medications Omeprazole* (Prilosec*) 20 Mg Capsule.dr, 20 MG PO DAILY, CAP 01/25/14 Docusate Sodium* (Colace*) 100 Mg Capsule, 100 MG PO BID, CAP 01/25/14 Aspirin* (Aspirin* (EC)) 81 Mg Tablet.dr, 81 MG PO DAILY, TAB 01/25/14 Metoprolol Tartrate* (Lopressor*) 25 Mg Tab, 25 MG PO BID for ELEVATED BLOOD PRESSURE, TAB 01/25/14 Tamsulosin Hcl* (Flomax*) 0.4 Mg Cap.er.24h, 0.4 MG PO HS, CAP 01/25/14 Primary Care Provider Not On Staff Doctor Time spent on discharge: > 30 minutes Pending Labs Laboratory Tests Test 06/14/17 08:22 White Blood Count 14.210^3/ul (4.8-10.8) Red Blood Count 3.1310^6/ul (4.70-6.10) Hemoglobin 9.0g/dl (14.0-18.0) Hematocrit 27.2% (42.0-52.0) Mean Corpuscular Volume 86.9fl (82.0-101.0) Mean Corpuscular Hemoglobin 28.8pg (29.0-33.0) Mean Corpuscular Hemoglobin Concent 33.1g/dl (32.0-37.0) Red Cell Distribution Width 16.9% (11.5-14.5) Platelet Count 41265^3/UL (140-415) Mean Platelet Volume 10.7fl (7.4-10.4) Neutrophils % 86.8% (39.0-77.0) Lymphocytes % 5.4% (15.0-51.0) Monocytes % 4.6% (0.0-11.0) Eosinophils % 2.0% (0.0-7.0) Basophils % 0.2% (0.0-2.0) Nucleated Red Blood Cells % 0.0/100WBC (0.0-0.0) Neutrophils # 12.310^3/ul (1.6-7.5) Lymphocytes # 0.810^3/ul (0.8-2.9) Monocytes # 0.710^3/ul (0.3-0.9) Eosinophils # 0.310^3/ul (0.0-0.5) Basophils # 0.010^3/ul (0.0-0.1) Nucleated Red Blood Cells # 0.010^3/ul (0.0-0.0) Sodium Level 139mmol/L (135-144) Potassium Level 4.7mmol/L (3.5-5.1) Chloride Level 106mmol/L (97-110) Carbon Dioxide Level 24mmol/L (21-31) Anion Gap 14 (8-16) Blood Urea Nitrogen 33mg/dl (7-20) Creatinine 1.03mg/dl (0.61-1.24) Glucose Level 116mg/dl (70-220) Calcium Level 7.5mg/dl (8.4-10.2) Phosphorus Level 4.0mg/dl (2.5-4.9) Magnesium Level 1.6mg/dl (1.7-2.5) JULIANNA WALDEN Jun 14, 2017 12:13
[2017-06-14] MEDS ORDERED: UDFER GTB (12:15)
[2017-06-14] MEDS ORDERED: SODI473S16 IRR (12:15)
[2017-06-14] MEDS ORDERED: FLUC100T PO (12:15)
[2017-06-14] MEDS ORDERED: ASC500 GTB (12:15)
[2017-06-14] MEDS ORDERED: LANS30CA GTB (12:15)
[2017-06-14] MEDS ORDERED: ENOXAPARIN 30 MG/0.3 ML SYG SC SCH (12:30)
[2017-06-14] MEDS ORDERED: ASPIRIN 81 MG TAB NGT SCH (12:30)
--- NOTE | 2017-06-14 12:49 | CONS ---
Date/Time of Note Date/Time of Note DATE: 06/14/17 TIME: 12:49 Assessment/Plan Assessment/Plan Additional Assessment/Plan IMPRESSION: 1. Leukocytosis. Better 2. Aspiration pneumonia. 3. Status post G-J tube. Tolerating feeding well 4. Vent-dependent respiratory failure. 5. Cerebrovascular accident. 6. Anemia. Stool for occult blood was negative. This is anemia of chronic disease. 7. Urinary tract infection. 8. Anemia of chronic disease no evidence of active GI bleeding PLAN: To continue feeding. We will monitor H and H and complete the course of antibiotics. Back to group home once stable Patient is tolerating feeding there is no evidence of aspiration Consultation Date/Type/Reason Admit Date/Time Jun 08, 2017 at 12:13 Type of Consultation: Pulmonary 24 HR Interval Summary Constitutional: improved, no complaints Exam/Review of Systems Vital Signs Vitals Vital Signs Date Time Temp Pulse Resp B/P Pulse Ox O2 Delivery O2 Flow Rate FiO2 06/14/17 12:41 99.0 65 18 140/66 98 06/14/17 09:15 30 Intake and Output 06/13/17 06/13/17 06/14/17 15:00 23:00 07:00 Intake Total 1050 ml Output Total 1950 ml Balance -900 ml Exam Constitutional: alert, oriented, well developed Psych: nl mood/affect, no complaints Head: atraumatic, normocephalic Eyes: EOMI, PERRL, nl conjunctiva, nl lids, nl sclera ENMT: nl external ears & nose, nl lips & teeth, nl nasal mucosa & septum Neck: non-tender, supple Respiratory: clear to auscultation, normal air movement Cardiovascular: nl pulses, regular rate and rhythm Gastrointestinal: nl liver, spleen, non-tender, soft Musculoskeletal: nl extremities to inspection, nl gait and stance Extremities: normal pulses Neurological: [employer] II-XII intact, nl mental status, nl speech, nl strength Skin: nl turgor, No rash or lesions Lymph: nl lymph nodes Results Result Diagram: 06/14/1782106/14/17 0822 Results 24 hrs Laboratory Tests Test 06/14/17 08:22 White Blood Count 14.2 H Red Blood Count 3.13 #L Hemoglobin 9.0 #L Hematocrit 27.2 L Mean Corpuscular Volume 86.9 Mean Corpuscular Hemoglobin 28.8 L Mean Corpuscular Hemoglobin Concent 33.1 Red Cell Distribution Width 16.9 H Platelet Count 369 # Mean Platelet Volume 10.7 H Neutrophils % 86.8 H Lymphocytes % 5.4 L Monocytes % 4.6 Eosinophils % 2.0 Basophils % 0.2 Nucleated Red Blood Cells % 0.0 Neutrophils # 12.3 H Lymphocytes # 0.8 Monocytes # 0.7 Eosinophils # 0.3 Basophils # 0.0 Nucleated Red Blood Cells # 0.0 Sodium Level 139 Potassium Level 4.7 Chloride Level 106 Carbon Dioxide Level 24 Anion Gap 14 Blood Urea Nitrogen 33 H Creatinine 1.03 Glucose Level 116 Calcium Level 7.5 L Phosphorus Level 4.0 Magnesium Level 1.6 L Medications Medications Current Medications Docusate Sodium (Colace) 100 mg BID PRN PO constipation; Start 06/06/17 at 16: 30 Metoprolol Tartrate (Lopressor) 25 mg BID GTB Last administered on 06/14/17 09:11; Admin Dose 25 MG; Start 06/06/17 at 21:00 Tamsulosin HCl (Flomax) 0.4 mg HS PO Last administered on 06/13/17 21:48; Admin Dose 0.4 MG; Start 06/06/17 at 21:00 Ondansetron HCl (Zofran Inj) 4 mg Q6H PRN IV NAUSEA AND/OR VOMITING; Start at 16:30 Acetaminophen (Tylenol Tab) 650 mg Q6H PRN GTB PAIN LEVEL 1-3 OR FEVER; Start 06/06/17 at 16:30 Magnesium Hydroxide (Milk Of Mag) 30 ml DAILY PRN GTB CONSTIPATION; Start at 16:30 Miscellaneous Information (Pending Santyl Order For Wound Care) This patient felipe... PRN PRN XX WOUND CARE; Start 06/06/17 at 23:00 Collagenase (Santyl) 1 applic DAILY TOP Last administered on 06/14/17 09:12; Admin Dose 1 APPLIC; Start 06/07/17 at 09:00 Sodium Hypochlorite 1 applic 1 applic BID IRR Last administered on 06/14/17 09:11; Admin Dose 1 APPLIC; Start 06/07/17 at 14:00 Sodium Chloride 1,000 ml @ 50 mls/hr Q20H IV Last administered on 06/14/17 06:28; Admin Dose 50 MLS/HR; Start 06/08/17 at 11:00 Vancomycin HCl 100 ml @ 100 mls/hr Q36H IVPB Last administered on 06/14/17 00:45; Admin Dose 100 MLS/HR; Start 06/09/17 at 12:00 Piperacillin Sod/ Tazobactam Sod (Zosyn 2.25gm/ 50ml (Pmx)) 50 ml @ 100 mls/hr Q6 IVPB Last administered on 06/14/17 06:27; Admin Dose 100 MLS/HR; Start at 13:31 Ascorbic Acid (Vitamin C) 500 mg BID GTB Last administered on 06/14/17 09:11 ; Admin Dose 500 MG; Start 06/10/17 at 21:00 Ferrous Sulfate (Feosol Liquid Cup) 300 mg DAILY GTB Last administered on 06/14 09:10; Admin Dose 300 MG; Start 06/11/17 at 09:00 Fluconazole (Diflucan) 100 mg DAILY PO Last administered on 06/14/17 09:10; Admin Dose 100 MG; Start 06/11/17 at 15:00 Lansoprazole 30 mg 30 mg DAILY GTB Last administered on 06/14/17 09:10; Admin Dose 30 MG; Start 06/12/17 at 09:00 Magnesium Sulfate (Magnesium Sulfate 2 Gm/50 ml) 50 ml @ 25 mls/hr ONCE ONCE IVPB ; Start 06/14/17 at 11:00; Stop 06/14/17 at 12:59 Aspirin (Aspirin) 81 mg DAILY NGT ; Start 06/14/17 at 12:30 Enoxaparin Sodium (Lovenox) 30 mg DAILY SC ; Start 06/14/17 at 12:30 ELIZABETH AVILA MD Jun 14, 2017 12:49
[2017-06-14] MEDS ORDERED: LEVO500T72 GTB (14:26)
[2017-06-14] MEDS ORDERED: CASPOFUNGIN 70 MG in SOD CHLORIDE 0.9% 250 ML IVPB ONE (15:00)
[2017-06-15] MEDS ORDERED: LEVOFLOXACIN 500 MG TAB GTB SCH (06:00)
[2017-06-15] MEDS ORDERED: CASPOFUNGIN 50 MG in SOD CHLORIDE 0.9% 250 ML IVPB SCH (15:00)
== END 2017-06-14 17:43 | DRG 853 ==
LOC: E/R 14:29 → TEL 16:11 → OBSVTOIN 06-08 12:13
PROVIDERS: ADMIT Internal Medicine; ATTEND Internal Medicine
PROC: 5A1955Z Respiratory Ventilation, Greater than 96 Consecutive Hours (ICD-10-PCS; principal; 2017-06-06)
PROC: 0DW64UZ Revision of Feeding Device in Stomach, Percutaneous Endoscopic Approach (ICD-10-PCS; 2017-06-07)
PROC: 30233N1 Transfusion of Nonautologous Red Blood Cells into Peripheral Vein, Percutaneous Approach (ICD-10-PCS; 2017-06-07)
DX: A41.9 Sepsis, unspecified organism (principal); J69.0 Pneumonitis due to inhalation of food and vomit; G93.40 Encephalopathy, unspecified; N17.9 Acute kidney failure, unspecified; J96.10 Chronic respiratory failure, unspecified whether with hypoxia or hypercapnia; E44.0 Moderate protein-calorie malnutrition; E87.1 Hypo-osmolality and hyponatremia; I69.959 Hemiplegia and hemiparesis following unspecified cerebrovascular disease affecting unspecified side; N39.0 Urinary tract infection, site not specified; Z68.1 Body mass index [BMI] 19.9 or less, adult; K94.23 Gastrostomy malfunction; Z93.0 Tracheostomy status; F03.90 Unspecified dementia, unspecified severity, without behavioral disturbance, psychotic disturbance, mood disturbance, and anxiety; D64.9 Anemia, unspecified; I10 Essential (primary) hypertension; B95.2 Enterococcus as the cause of diseases classified elsewhere; Z16.12 Extended spectrum beta lactamase (ESBL) resistance; G30.9 Alzheimer's disease, unspecified; F02.80 Dementia in other diseases classified elsewhere, unspecified severity, without behavioral disturbance, psychotic disturbance, mood disturbance, and anxiety
CPT/HCPCS: 36430; 71010; 80048; 80053; 80069; 80202; 81001; 82270; 82728; 83540; 83690; 83735; 84100; 84134; 85025; 85610; 85730; 86850; 86900; 86901; 86920; 87040; 87081; 87086; 94002; 94003; 94640; G0378; C9113; J1650; J2543; J3370; J3475; J3480; J7030; J7040; J7042; J7050; P9016

== ENCOUNTER 2017-08-10 10:03 | Inpatient (IN) | END 2017-08-25 15:50 | DRG 870 ==